=== PATIENT | female | born 1980 | race Caucasian/White ===

== ENCOUNTER 2022-04-29 13:39 | Outpatient (CLI) | payer OTHER, SELFPAY | END 2022-04-29 13:40 | disposition home or self-care (01) | PROVIDERS: PCP Family Medicine; Visit Provider Family Medicine | DX: R10.9 Unspecified abdominal pain (principal); E03.9 Hypothyroidism, unspecified; R68.82 Decreased libido | CPT/HCPCS: 80053; 84270; 84402; 84403; 84443 ==

== ENCOUNTER 2023-09-01 12:56 | Outpatient (CLI) | payer OTHER, SELFPAY | END 2023-09-01 12:57 | disposition home or self-care (01) | PROVIDERS: PCP Family Medicine; Visit Provider Family Medicine | DX: M25.50 Pain in unspecified joint (principal); R10.9 Unspecified abdominal pain; R53.83 Other fatigue; R68.82 Decreased libido; R11.0 Nausea | CPT/HCPCS: 80053; 80061; 82607; 82627; 82747; 83090; 83690; 84270; 84402; 84403; 84443 ==

== ENCOUNTER 2023-09-01 22:43 | Outpatient (REF) | payer OTHER, SELFPAY ==
--- OUTSIDE RECORDS SUMMARY | 2023-09-01 22:50 | XMS_ITS | Continuity of Care Document ---
Author Name [facility] Organization [facility] Care Team Providers Care Population Health Manager Name Role Phone [facility] Unavailable Unavailable Problems Combined list of problems from Department of Defense and Veterans Affairs facilities. It does not include entries that were removed or entered in error. Problem Status Onset Date Problem Type Date of Resolution Comments Source Other specified hypothyroidism Active 9 Condition DoD Other atopic dermatitis Active 8 Condition DoD Generalized anxiety disorder Active 7 Condition DoD Insomnia, unspecified Active 7 Condition DoD Anxiety disorder, unspecified Active 6 Condition DoD Pelvic and perineal pain Active Condition DoD Major depressive disorder, recurrent, unspecified Active Condition DoD Low self-esteem Active Condition DoD Other stressful life events affecting family and household Active Condition DoD anemia Active Condition DoD vaginal wall prolapse rectocele Active Condition DoD vaginal wall prolapse cystocele, midline Active Condition DoD myalgia and myositis Active Condition 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 uterus Active Condition DoD Patient Education - Self-Examination Of Breasts Inactive Condition DoD female pelvic pain Active Condition DoD allergic rhinitis Active Condition DoD deviated nasal septum Active Condition DoD urinary frequency Active Condition DoD hordeolum externum left lower eyelid Inactive Condition DoD eczema Inactive Condition DoD finger sprain right thumb MCP Inactive Condition DoD joint pain, localized in the wrist Active Condition DoD contusion with intact skin surface hand Inactive Condition DoD Observation For Suspected Condition Inactive Condition DoD fatigue Active Condition DoD dysplastic nevus Active Condition DoD headache syndromes Active Condition DoD dry eye syndrome Active Condition DoD female dyspareunia due to a physical condition Active Condition DoD esophageal reflux Active Condition DoD sinusitis Active Condition DoD acute urinary retention Active Condition DoD visit for: issue repeat prescription for medication Inactive Condition DoD acne Inactive Condition DoD feelings of urinary urgency Inactive Condition DoD Alopecia Inactive Condition DoD joint pain, localized in the hip Active Condition DoD constipation Inactive Condition DoD nausea Inactive Condition DoD anxiety Active Condition DoD xerosis cutis Inactive Condition DoD visit for: administrative purpose Inactive Condition DoD acute lymphadenitis axillary Inactive Condition 26yo w/ masses more likely to be lymph nodes from lactating. pt does not have evidence of mastitis. pt reassured and will need US for evaluation. however, since pt is moving will need to f/u at [place] for US and surgical consult. DoD sore throat Inactive Condition DoD opioid dependence continuous Active Condition DoD lower back pain Active Condition DoD routine pelvic exam Inactive Condition D oD pain during urination (dysuria) Inactive Condition DoD chronic pain Active Condition increas e oxycontin to 30mg po bid DoD insomnia Active Condition refill med s until she can see her pcm. DoD urinary tract infection Inactive Condition DoD upper respiratory infection Inactive Condition Recommend frequent NaCl gargles as well as increased fluids and rest while recovering from this illness. DoD chronic pain syndrome Active Condition DoD Brace Inactive Condition DoD depression Active Condition DoD idiopathic peripheral autonomic neuropathy Active Condition DoD migraine headache Active Condition DoD postlaminectomy syndrome lumbar Active Condition DoD osteoarthritis Active Condition DoD backache Active Condition pt will ge t physical training consult. DoD Other Physical Therapy Inactive Condition DoD Patient Counseling: Inactive Condition D oD nicotine dependence Active Condition Do D uterine prolapse Active Condition pt w/ pelvic organ prolapse, since pt not done w/ child bearing, would recommend kegel and if done w/ child bearing the uterosacral colpoplexy or tvh. pt getting back surgery done, once completed since she is having it done outside of [facility], recommend pt DoD cystocele Active Condition Stage 2. Urethra does not appear to be hypermobile. Bladder descends with straining to +1. Pt's complaints are much worse than her exam appears to show. I am afraid that she has unrealistic expectations of what t his surgery will do for her. Will get urodynamics and review her old records and come up with a plan for treatment. DoD rectocele Active Condition Not significant. Unlikely to be cause of symptoms. Needs to manage constipation to prevent worsening of problem. DoD feared medical condition not demonstrated Inactive Condition pt c/o stye (x2) - left superior lidPt educated on lid hygeine - lid scrubs and compresses for maintence.Pt interested in Doxycycline dosage (100mg bid) if problem persists. DoD patellofemoral syndrome Active Condition DoD tendonitis patellar Active Condition left - handout given, physical therapy consult. Patient to use Naproysn 500mg BID that she has at home. DoD keratosis pilaris Inactive Condition DoD pelvic pain Active Condition DoD hordeolum externum Inactive Condition Do D visit for: exam Inactive Condition [facility] sciatica Inactive Condition [facility] Supervision Of Normal Inactive Condition [facility] Medications Combined list of outpatient medications from Department of Defense and Veterans Affairs facilities.Medications provided include 1) outpatient medications from the last 15 months, and 2) patient-reported medications. Medication Details Route Status Patient Instructions Prescription Expires Prescription Number Last Dispense Date Ordering Provider Order Date Order Qty Source CLOBETASOL PROPIONATE (clobetasol propionate) , 0.05 %, CREAM (G), TOPICAL, ENCUBE ETHICALS, 60 g TUBE Active [id number] 2023 60 Pharmac y Data Transac tion Service Facilit y CLOBETASOL PROPIONATE (clobetasol propionate) , 0.05 %, OINT. (G), TOPICAL, ENCUBE ETHICALS, 60 g TUBE Active [id number] 4 2023 60 Pharmac y Data Transac tion Service Facilit y PIMECROLIMU S (pimecrolim us), 1 %, CREAM (G), TOPICAL, ACTAVIS/TEV A, 100 g TUBE Cancele d [id number] : 2023 0 Pharmac y Data Transac tion Service Facilit y TACROLIMUS (tacrolimus ), 0.1 %, OINT. (G), TOPICAL, GLENMARK PHARMA, 100 g TUBE Cancele d [id number] : 2023 0 Pharmac y Data Transac tion Service Facilit y TACROLIMUS (tacrolimus ), 0.1 %, OINT. (G), TOPICAL, GLENMARK PHARMA, 100 g TUBE Active [id number] 4 2023 100 Pharmac y Data Transac tion Service Facilit y TACROLIMUS (tacrolimus ), 0.1 %, OINT. (G), TOPICAL, GLENMARK PHARMA, 100 g TUBE Active [id number] 4 2023 100 Pharmac y Data Transac tion Service Facilit y TRETINOIN (tretinoin) , 0.05 %, CREAM (G), TOPICAL, PERRIGO/PAD AGIS, 45 g TUBE Cancele d [id number] : 2023 0 Pharmac y Data Transac tion Service Facilit y TRETINOIN (tretinoin) , 0.1 %, CREAM (G), TOPICAL, TARO [employer]ARM [employer], 45 g TUBE Active [id number] 4 2023 45 Pharmac y Data Transac tion Service Facilit y UREA (urea), 40 %, CREAM (G), TOPICAL, BIOCOMP PHARMA,, 85 g BOTTLE Cancele d [id number] : 2023 0 Pharmac y Data Transac tion Service Facilit y UREA (urea), 40 %, CREAM (G), TOPICAL, BIOCOMP PHARMA,, 85 g BOTTLE Cancele d [id number] : 2023 0 Pharmac y Data Transac tion Service Facilit y UREA (urea), 40 %, CREAM (G), TOPICAL, BIOCOMP PHARMA,, 85 g BOTTLE Cancele d [id number] : 2023 0 Pharmac y Data Transac tion Service Facilit y UREA (urea), 40 %, CREAM (G), TOPICAL, BIOCOMP PHARMA,, 85 g BOTTLE Active [id number] 4 2023 85 Pharmac y Data Transac tion Service Facilit y Allergies, Adverse Reactions, Alerts Combined list of allergies from Department of Defense and Veterans Affairs facilities. It does not include entries that were removed or entered in error. Substance Category Reaction Severity Reaction type Status Date Reported Comments Source SULFA-DRUGS Drug allergy (disorder) Unknown active 12/07/2012 [facility] [place], [place] ULTRAM (TRAMADOL HCL) Drug allergy (disorder) Nausea active 01/17/2014 Elmer MARKS [facility] [place], [place] Immunizations Combined list of available immunizations from the Department of Defense and Veterans Affairs facilities. Immunization Series Date Given Administered By Site Reaction Lot Number CVX Code Drug Wool Grader Status Comments Source tuberculin skin test; purified protein derivative solution, intradermal 1 2017 ROBSON GREEN 96 Transcribed (TRS) complet ed tuberculi n skin test; purified protein derivativ e solution, intraderm al DoD tuberculin skin test; purified protein derivative solution, intradermal 0 2016 EDWIN URIARTE Elvin [id number] 96 Sanofi Pasteur (PMC) complet ed tuberculi n skin test; purified protein derivativ e solution, intraderm al DoD measles virus vaccine 1 2016 EXEMPT 05 Transcribed (TRS) Not Given measles virus vaccine [facility] varicella virus vaccine 1 2016 EXEMPT 21 Transcribed (TRS) Not Given varicella virus vaccine DoD poliovirus vaccine, unspecified formulation 1 2016 EXEMPT 89 Transcribed (TRS) Not Given polioviru s vaccine, unspecifi ed formulati on DoD tuberculin skin test; purified protein derivative solution, intradermal 0 2016 SHANNANYASSINESTEPHENCAYETANO [id number] 96 Sanofi Pasteur (PMC) complet ed tuberculi n skin test; purified protein derivativ e solution, intraderm al DoD Encounters Combined list of: 1) Encounters from Department of Veterans Affairs facilities going back up to thelast 18 months. 2) Encounters from the Department of Defense facilities going back up to 280 months. Location Location Details Encounter Type Encounter Number Reason For Visit Attending Provider ADM Date DC Date Status Disposition Source Gen Avtar Dowell [facility] TIM [place] DIRECT TO [facility] FROM OTHER THAN ER OR [facility] [id number] 09/23 DISCHARGED HOME Gen Avtar Dowell [facility] TIM [place] [facility] Avtar Dowell [facility] David Dowell [place](Obstet rics/Gyne cology) OUTPATIENT [id number] f/u MAYO URRUTIA 12/07 Released w/o Limitations General Avtar Dowell [facility] [place](Obst etrics/ Gynecol ogy) [facility] Avtar Dowell [facility] [place](Psychi atry) OUTPATIENT [id number] needs paperwo SLICK Vang 01/26 Released w/o Limitations General Avtar Dowell [facility] [place] General Avtar Dowell [facility] [place], [place](Obstet rics) TELE CONSULT [id number] Appoint ment MAYO URRUTIA 03/07 Avtar Dowell [facility] [place] General Avtar Dowell [facility] [place] TELE CONSULT [id number] Leaving area for 7wks and will come back and will be moving. .. MAYO URRUTIA 03/08 General [place]tar Wood [place] General Avtar Wood [place] Iraheta(Obstet rics) TELE CONSULT [id number] Is leaving for [place] today @ 1800 and needs the referra l before she leaves. MAYO URRUTIA 03/16 [facility]tar [place] General Avtar Wood [facility] David [place] TELE CONSULT [id number] c [phone] 3///Has acosta vale about her Rx. COBY SOLORZANO 06/13 General Avtar Wood [place] General Avtar Wood [place] TELE CONSULT [id number] c [phone] 3/needs refill of MAYO Perez 07/18 General Marieard Wood [place] General Avtar Wood [facility] TIM López(Obstet rics) TELE CONSULT [id number] inducti on MAYO URRUTIA 08/06 General [place] Nirav [place]) Gen Avtar Nirav [facility] [place] DIRECT TO [facility] FROM OTHER THAN ER OR [facility] [id number] MAYO URRUTIA 08/10 DISCHARGED HOME Gen Avtar Wood [facility] TIM [place] General Avtar Wood [facility] TIM López(Obstet rics) TELE CONSULT [id number] PROBLEM W/ARM MAYO URRUTIA 08/14 General Avtar Wood [facility] [place] General Avtar Wood [facility] [place]Ob[place]/Gyne cology) TELE CONSULT [id number] NEEDS FOR YOU TO CALL [phone] MARISEL HONG 08/29 General Avtar Wood [place]Obst [place]/ Gynecol ogy) General Avtar Wood [facility] [place]Ob[place] TELE CONSULT [id number] MAYO URRUTIA 09/13 [facility] [place] [facility] [place] Medicine) OUTPATIENT [id number] KNEE PAIN FROM FORTUNATO JUAREZ. 10/05 Released w/o Limitations [facility] [place] [facility] [place]Gy[place] TELE CONSULT [id number] MARISEL PATINO 10/26 [facility] [place] Gy[place] [facility] [place] Medicine) OUTPATIENT [id number] TEST RESULTS GERMANIA AVILES 10/29 Released w/o Limitations [facility] [place] [facility] [place]) [place]PATIENT [id number] skin: a 'rash'u nder arms [as Sx] ORLANDO AVILA 11/16 Released w/o Limitations [facility] [place] [facility] [place]Gyne [place]ogy) OUTPATIENT [id number] f/u hormone PRO HOLGUIN I 12/18 Released w/o Limitations [facility] [place] Gynecol [place]gy[place] [facility] [place] Over [place] Medicine) OUTPATIENT [id number] f/u mri BERRY SAÚL L 12/31 Released w/o Limitations [facility] [place] [facility] [place] TELE CONSULT [id number] REFILLS -WELLBR UTIN XL 15O MG DAILY AND AMBEIN 10 MG DAILY PRO HOLGUIN I 01/01 [facility] [place] [facility] [place] [id number] routine eye exam MERA GERARDO 01/24 Released w/o Limitations [facility] Avtar Dowell [facility] [place]Opto metry[place] [facility] Avtar Dowell [facility] [place]Obstet [place]ics/Gyne cology) OUTPATIENT [id number] Annual WWE and questio ns PRO HOLGUIN Nahum 01/25 Released w/o Limitations [facility] Avtar Dowell [facility] [place](Obst [place]/ Gynecol ogy) [facility] Avtar Dowell [facility] [place]Obstet [place]ics/Gyne cology) TELE CONSULT [id number] Needs to talk to you PRO HOLGUIN Nahum 01/28 [facility] Avtar Dowell [facility] [place](Obst [place]rics/ Gynecol ogy) [facility] Avtar Dowell [facility] [place]Care Coordin[place]) OUTPATIENT [id number] CM - Team Conf FORTUNATO FLETCHER 04/23 Released w/o Limitations [facility] Avtar Dowell [facility] [place](Care Coordin [place]ion) [facility] Avtar Dowell [facility] [place]Machine Pull[place] Over [place] Medicine) OUTPATIENT [id number] back pain (had surgery in Feb) JONATHAN BAKER 04/24 Released w/o Limitations [facility] Avtar Dowell [facility] [place]Inte [place]nal Medicin e) [facility] Avtar Dowell [facility] [place] Medicine) OUTPATIENT [id number] referra l JONATHAN BAKER 05/30 Released w/o Limitations [facility] Avtar Dowell [facility] [place]Inte [place]nal Medicin [place]) [facility] Avtar Dowell [facility] [place]) [place]PATIENT [id number] IDIOPAT HIC PERIPHE RAL AUTONOM IC NEUROPA THY MARCE AVILA 06/17 Released w/o Limitations [facility] Avtar Dowell [facility] [place]Orth opedic[place] [facility] Avtar Dowell [facility] [place]Care Coordinat [place]) TELE CONSULT [id number] CC Referra l for Neurosu rgery F/U FORTUNATO FLETCHER 06/19 [facility] Avtar Dowell [facility] [place] [facility] Avtar Dowell [facility] [place] Over [place] Medicine) OUTPATIENT [id number] medicat ion APOLINAR MILLAN PILAR 07/11 Released w/o Limitations [facility] Avtar Dowell [facility] [place]Inte rnal Medicin [place]) [facility] Avtar Dowell [facility] [place]P [place]) [place]PATIENT [id number] PHYSICA L THERPAY CONSULT [facility] 07/23 Released with Work/Duty Limitations [facility] Avtar Dowell [facility] [place]P [place] [facility] Avtar Dowell [facility] [place]Machine Pull[place] Over al Medicine) OUTPATIENT [id number] hurt arm in SEP 2004 GER[place] AVILES 07/29 Released w/o Limitations [facility] Avtar Dowell [facility] [place]Inte rnal Medicin e) [facility] Avtar Dowell [facility] [place]) OUTPATIENT [id number] PABLO JUAN F A 07/31 Released w/o Limitations [facility] Avtar Dowell [facility] [place]P [place] [facility] Avtar Dowell [facility] [place]Obstet [place]ics/Gyne cology) TELE CONSULT [id number] NEEDS TO SPEAK WITH YOU PRO HOLGUIN I 08/08 [facility] Avtar Dowell [facility] [place](Obst [place]rics/ Gynecol ogy) [facility] Avtar Dowell [facility] [place]Machine Puller Over al Medicine) OUTPATIENT [id number] med renewal APOLINAR MILLAN PILAR 08/09 Released w/o Limitations [facility] Avtar Dowell [facility] [place](Inte rnal Medicin e) [facility] Avtar Dowell [facility] [place]Machine Puller Over al Medicine) OUTPATIENT [id number] medicat ion renewal APOLINAR MILLAN PILMARCIA 09/18 Released w/o Limitations [facility] Avtar Dowell [facility] [place](Inte rnal Medicin e) [facility] Avtar Dowell [facility] [place]Cast[place] OUTPATIENT [id number] Orthope dic Device TERRELL GUIDRY 09/18 Released w/o Limitations [facility] Avtar Dowell [facility] [place]Cast [place] [facility] Avtar Dowell [facility] [place]Obst[place]/Gyne cology[place] TELE CONSULT [id number] NEEDS TO SPEAK TO YOU ESTEFANY!! PRO HOLGUIN Nahum 11/07 General Avtar Dowell [facility] [place]Obst [place]/ Gynecol ogy) [facility] Avtar Dowell [facility] [place]Obst[place]ics/Gyne cology) TELE CONSULT [id number] NEEDS TO SPEAK WITH YOU PRO HOLGUIN Nahum 11/08 General Avtar Dowell [facility] [place]Obst [place]/ Gynecol ogy) [facility] Avtar Dowell [facility] [place]Machine Puller Over al Medicine) OUTPATIENT [id number] Med APOLINAR Scott 11/13 Released w/o Limitations General Avtar Dowell [facility] [place]Inte [place]nal Medicin [place]) [facility] Avtar Dowell [facility] [place]Blue IM) [place]PAT[place] [id number] POSS STREP THROAT JONATHAN BAKER RKanwal 11/18 Released w/o Limitations [facility] Avtar Dowell [facility] [place]Blue IM[place] [facility] Avtar Dowell [facility] [place]Blue IM) OUTPATIENT [id number] PT HAS POSS BLADDER INFECTI ON OLINDA PARIKH K 12/26 Released w/o Limitations [facility] Avtar Dowell [facility] [place]Blue IM[place] [facility] Avtar Dowell [facility] [place]Obst[place]ics/Gyne cology) OUTPATIENT [id number] f/up PRO HOLGUIN Nahum 01/24 Released w/o Limitations [facility] Avtar Dowell [facility] [place]Obst [place]/ Gynecol ogy) [facility] Avtar Dowell [facility] [place]Obst[place]/Gyne cology) TELE CONSULT [id number] SURGERY PRO HOLGUIN Nahum 02/20 [facility] Avtar Dowell [facility] [place]Obst [place]/ Gynecol ogy) [facility] Avtar Dowell [facility] [place]Family Practice [place] 1) OUTPATIENT [id number] MADYSON JEWELL 02/24 Released w/o Limitations [facility] Avtar Dowell [facility] [place] Practic [place] 1) [facility] Avtar Dowell [facility] [place]) [place] [id number] NEW OB DISCUSS BEFORE DOING OB REG PRO HOLGUIN I 02/28 Released w/o Limitations [facility] Wood [place] [facility] [place]) [place]PAT[place] [id number] OB REG MARISEL HONGKanwal 03/18 Released w/o Limitations [facility] [place]Obst [place] [facility] [place]) OUTPATIENT [id number] PRO HOLGUNI I 03/19 Released w/o Limitations [facility] [place]Obst [place] [facility] [place]) [place] [id number] visit for: jose g young high-ri HECTOR Ahmadi 04/01 Released w/o Limitations [facility]tar [place]irav [place] [facility]av [place] TELE CONSULT [id number] MADYSON GALAVIZ 04/22 [facility] [place]Fami [place] Practic [place] Team 1) [facility] [place]Obst[place] OUTPATIENT [id number] ob f/u PRO HOLGUIN I 04/23 Released w/o Limitations [facility] [place]irav [place]Ob[place] [facility]tar N[place]av [place]Family Practice [place] 1[place] TELE CONSULT [id number] JENNY WOODWARD 04/29 [facility] [place]Fami [place] Practic [place] Team 1) [facility] [place]Family [place] TELE CONSULT [id number] MADYSON GALAVIZ 05/20 [facility] [place]Fami [place] Practic [place] Team 1) [facility] [place]) OUTPATIENT [id number] f/u ob 19 wks/f/u appt w/outsi de provide r PRO HOLGUIN I 05/28 Released w/o Limitations [facility] [place] [facility] [place] TELE CONSULT [id number] Rx renewal JENNY WOODWARD. 06/02 [facility] [place]Fami [place] Practic [place] Team 1) [facility] [place] TELE CONSULT [id number] NEEDS LETTER PRO HOLGUIN I 06/11 [facility] [place] [facility] [place] OUTPATIENT [id number] 23 weeks f/u PRO HOLGUIN I 06/18 Released w/o Limitations [facility] [place] [facility] [place]) OUTPATIENT [id number] WALK IN ([facility]) MANDA SEGOVIA C 06/19 Released w/o Limitations [facility] [place]Fami [place] Practic [place] Team 1) [facility] [place]) OUTPATIENT [id number] 27 weeks PRO HOLGUIN I 07/17 Released w/o Limitations [facility] [place] [facility] [place]) OUTPATIENT [id number] NST and ALECIA ALONSO OWENS 07/23 Released w/o Limitations [facility] [place] [facility] [place]) OUTPAT[place] [id number] Walk In: ALECIA & NST L & D MARISEL HONG 07/29 Released w/o Limitations [facility] [place] [facility] [place]) OUTPATIENT [id number] Walkk In: ALECIA & NST L & D MARISEL HONG 08/05 Released w/o Limitations [facility] [place] [facility] [place]) OUTPATIENT [id number] f/u ob 32 wks CHELSIE PRO I 08/07 Released w/o Limitations [facility] [place] [facility] [place]) OUTPATIENT [id number] WALK IN NST &ALECIA L&D PRO HOLGUIN I 08/18 Released w/o Limitations [facility] [place] [facility] [place]Gy[place] OUTPATIENT [id number] nst PRO HOLGUIN I 08/22 Released w/o Limitations [facility] [place] Gynecol [place]gy[place] [facility] [place]) OUTPATIENT [id number] Walk In: ALECIA & NST L & D MARISEL HONG 08/26 Released w/o Limitations [facility] [place] [facility] [place]) OUTPATIENT [id number] WALK IN NST ALECIA, L&D HOME FALL 09/02 Released w/o Limitations [facility] [place] [facility] [place] OUTPATIENT [id number] Walk In: ALECIA & NST L & D MARISEL HONG 09/09 Released w/o Limitations [facility] [place] [facility] [place] OUTPATIENT [id number] 35weeks PRO HOLGUIN I 09/12 Released w/o Limitations [facility] [place] [facility] [place]) OUTPATIENT [id number] Walk In: ALECIA & NST L & D HOME FALL 09/15 Released w/o Limitations [facility] [place] [facility] [place]) OUTPATIENT [id number] Walk In: CHUCHOT Hugo & MARISEL VALLADARES 09/19 Released w/o Limitations [facility] [place] [facility] [place] OUTPATIENT [id number] Walk In: ALECIA & NST Hugo & MARISEL VALLADARES 09/23 Released w/o Limitations [facility] [place] [facility] [place] OUTPATIENT [id number] f/u ob 38 wks PRO HOLGUIN I 09/25 Released w/o Limitations [facility] [place] [facility] [place]) OUTPATIENT [id number] ob f/u 38wks MARISEL HONG 09/30 Released w/o Limitations [facility] [place] [facility] [place]) OUTPATIENT [id number] MARISEL Red 10/03 Released w/o Limitations [facility] [place]col [place]gy[facility] [place] DIRECT TO [facility] FROM OTHER THAN ER OR U [id number] PRO HOLGUIN I 10/06 CANCELLED ADMISSION [facility] [place] [facility] [place]) TELE CONSULT [id number] Left axillar y cysts/n odules x 2 enlargi ng PRO HOLGUIN I 10/14 [facility] [place] [facility] [place] OUTPATIENT [id number] breast lumps and armpit lumps x 4 months PRO HOLGUIN I 10/15 Released w/o Limitations [facility] [place](Obst etrics/ Gynecol ogy) [facility] [place](Obstet rics/Gyne cology) OUTPATIENT [id number] placede nt of pessary PRO HOLGUIN I 10/29 Released w/o Limitations [facility] [place](Obst etrics/ Gynecol ogy) [facility] [place](Obstet rics/Gyne cology) OUTPATIENT [id number] pp pt pessary coming out GERMANIA PUENTES 11/03 Released w/o Limitations [facility] [place](Obst etrics/ Gynecol ogy) [facility]et [facility]ics/Gyne cology Clinic) TELE CONSULT [id number] referra MATTHEW Calles 12/23 [facility]st [facility]/ Gynecol ogy Clinic) [facility]ne cology Clinic) OUTPATIENT [id number] referra l from Dr. Bowie/aura t is 8 wks pp eval for rectoce le & cystoce le MATTHEW TALBOT 12/31 Released w/o Limitations [facility]st [facility]rics/ Gynecol ogy Clinic) [facility]ne cology Clinic) TELE CONSULT [id number] second opinion CHARISMA LYNN 12/31 [facility]/ Gynecol ogy Clinic[facility]ne cology Clinic) OUTPATIENT [id number] cystoce le,rect ocele CHARISMA LYNN 01/21 Released w/o Limitations [facility]st [facility]rics/ Gynecol ogy Clinic) [facility] TIM [place](Obstet rics/Gyne cology) TELE CONSULT [id number] wants to know if you will do her surgery (cystoc cruz and rectoce le) ? PRO HOLGUIN I 02/04 [facility]col [facility]gy) [facility], [facility]) OUTPATIENT [id number] SINUS CONGEST ION;BROOK SEA AND SORE THROAT LISBET GOYAL E 11/25 Released w/o Limitations [facility], [facility] Care Clinic) [facility](Family [facility] 1, Primary Care Clinic) OUTPATIENT [id number] NEEDING REFERRA L TO GO BACK AND SEE SURGERY DOCTOR RACHEL CHEN 12/24 Released w/o Limitations [facility], [facility] Care Clinic) [facility]([place] [address], Primary Care Clinic) TELE CONSULT [id number] return call SY BRADFORD 01/12 [facility], [facility]) [facility]([place] [address], [facility] Clinic) OUTPATIENT [id number] uti symptom s, referra ls LISBET GOYAL E 01/21 Released w/o Limitations [facility], [facility]) [facility]([place] [address], [facility] Care Clinic) OUTPATIENT [id number] nausea x 1 week DIPAK CADET 02/28 Released w/o Limitations [facility], [facility] Care Clinic) [facility] 1, Primary Care Clinic) TELE CONSULT [id number] med refill request SY BRADFORD 03/09 [facility], [facility] Clinic) [facility]([place] [address], [facility] Care Clinic) OUTPATIENT [id number] FOLLOW UP ON MEDS LISBET GOYAL E 03/16 Released w/o Limitations [facility], [facility] Clinic) [facility]([place] [address], [facility] Care Clinic) OUTPATIENT [id number] f/u meds SANTOSAGALSASIA , LISBET E 04/08 Released w/o Limitations [facility], [facility]) [facility], [facility]) TELE CONSULT [id number] pt calling about her patch SY BRADFORD A 04/11 [facility], [facility]) [facility]) TELE CONSULT [id number] med refill SY BRADFORD A 04/26 [facility], [facility]) [facility]) OUTPATIENT [id number] f/u ELIF GOYALSON E 04/26 Released w/o Limitations [facility], [facility]) [facility]) TELE CONSULT [id number] med is making her sick SY BRADFORD A 05/10 [facility], [facility]) [facility], [facility]) OUTPATIENT [id number] med refill- pain ELIF GOYALSON E 05/31 Released w/o Limitations [facility], [facility]) [facility]) TELE CONSULT [id number] NETTA Posey 06/01 [facility], [facility]) [facility]) TELE CONSULT [id number] PT CHECKIN G ON REFERAL LISBET GOYAL E 06/03 [facility], [facility] Care Clinic) [facility], [facility]) TELE CONSULT [id number] f/u NETTA Serna 06/03 [facility], Primary Care Clinic) [facility] 1, Primary Care Clinic) TELE CONSULT [id number] xray results JUAN TSAI 06/07 [facility], Primary Care Clinic) [facility] [id number] ref needed RENAEJENNY ROMO Dalila 06/15 Released w/o Limitations [facility] TELE CONSULT [id number] pt wants hormone w/u to explain hair loss dry skin recent labs given MAYUR MOJICA 06/16 [facility] TELE CONSULT [id number] f/u labs MAYUR MOJICA 06/21 [facility] OUTPATIENT [id number] pt needing seen for vitamin deficie ncy,pos sible referra l dermato AYANNA Hdz 06/27 Released w/o Limitations [facility] TELE CONSULT [id number] pt of Domag., med refill request RENAEJENNY ROMO Dalila 07/08 [facility]) [facility] OUTPATIENT [id number] med re-fill narcoti c ONESIMO QUIÑONEZ 07/12 Released w/o Limitations [facility] TELE CONSULT [id number] call labs AYANNA AGUILAR 07/20 [facility] TELE CONSULT [id number] Pain med refill - apt but went to [facility] JONATHAN ALLISON 08/09 [facility]) OUTPATIENT [id number] medicat ion refill/ eval LISBET GOYAL 09/06 Released w/o Limitations [facility]) OUTPATIENT [id number] med refill ORESTES Sands DALLAS Guy 10/05 Released w/o Limitations [facility]) [facility]) OUTPATIENT [id number] f/u meds and refill CLAONESIMO SEGURA 10/07 Released w/o Limitations [facility]) OUTPATIENT [id number] MED EVAL AND REFILL; REFERRA L ONESIMO QUIÑONEZ 11/15 Released w/o Limitations [facility]) TELE CONSULT [id number] Ref to pain clinic by Mr Tarun rincon teresa shane ns [phone] MARGE BAUTISTA 12/05 [facility]) OUTPATIENT [id number] med refills ONESIMO QUIÑONEZ 12/13 Released w/o Limitations [facility]) TELE CONSULT [id number] refill meds ONESIMO QUIÑONEZ 01/06 [facility]) OUTPATIENT [id number] medicat ion refill ONESIMO QUIÑONEZ 01/06 Released w/o Limitations [facility]) TELE CONSULT [id number] pt. calling for referra l to [facility] pt needs altter faxed to them. ONESIMO QUIÑONEZ 01/17 [facility]) [facility]) OUTPATIENT [id number] med re-fill and referra ls ONESIMO QUIÑONEZ 01/31 Released w/o Limitations [facility]) [facility]) TELE CONSULT [id number] meds MARGE BAUTISTA 02/07 [facility]) [facility]) TELE CONSULT [id number] med refill MARGE BAUTISTA 02/24 [facility]) [facility] OUTPATIENT [id number] JIMMY CAMPBELL 04/19 Released w/o Limitations [facility]) [facility]) OUTPATIENT [id number] med refills and referal s ONESIMO QUIÑONEZ 05/15 Released w/o Limitations [facility]) [facility]) TELE CONSULT [id number] Pt calling for her referra l to pain clinic and physica l therapy not in MARGE BAUTISTA 06/02 Referred for Appointment [facility]) [facility]) TELE CONSULT [id number] Req refill of Tramado l [phone] MARGE BAUTISTA 06/06 Referred for Appointment [facility]) [facility]) TELE CONSULT [id number] 1300 appt 14 june Ms Aguilar for burning and bloatin g and freq 1 hr prior to lab MICHELE MARGE MONO 06/13 Referred for Appointment [facility]) [facility]) OUTPATIENT [id number] pt has had bladder reconst now frequen cy pain and bloatin g TAMRA NANETTEALBERTO L 06/14 Released w/o Limitations [facility]) [facility]) TELE CONSULT [id number] call bladder culture INDIRAWicho MARGE MONO 06/14 Referred for Appointment [facility]) [facility]) TELE CONSULT [id number] Pt of Ms Aguilar needs recent visit sent to Pain clinic for apt Fax MARGE BAUTISTA 06/19 Referred for Appointment [facility]) [facility]) TELE CONSULT [id number] pt. calling for Clindam ycin cream for her face acne issues INDIRAWicho MARGE MONO 06/27 Referred for Appointment [facility]) [facility]) OUTPATIENT [id number] med refill AYANNA AGUILAR L 07/12 Released w/o Limitations [facility]) [facility]) OUTPATIENT [id number] med refill TAMRA INGELIN L 08/08 Released w/o Limitations [facility]) [facility]) OUTPATIENT [id number] back pain. pt broke her back in an acciden t. may have broken it again TAMRANANETTE TIPTONELIN L 09/12 Released w/o Limitations [facility]) [facility]([place] [address]) OUTPATIENT [id number] MED REFILL INDIA REYES 11/03 Released w/o Limitations [facility]([place] [address]) [facility]([place] [address]) OUTPATIENT [id number] medicat ion refill INDIA REYES 11/28 Released w/o Limitations [facility]([place] [address]) [facility]([place] [address]) TELE CONSULT [id number] rx given to patient needs to be changed INDIA REYES 11/28 [facility]([place] [address]) [facility]) OUTPATIENT [id number] pt needs med reevalu ation INDIA GUY 01/01 Released w/o Limitations [facility]) [facility]) OUTPATIENT [id number] f/up evaluat ion INDIA GUY 01/02 Released w/o Limitations [facility]) [facility]) TELE CONSULT [id number] needs rx refills for clindom ycin reactiv ated call @ [phone] FANG-D KALEBOSSCIRILOFREDDIE A 01/09 Referred for Appointment [facility]) [facility]) OUTPATIENT [id number] f/up medicat ion INDIA GUY J 01/10 Released w/o Limitations [facility]) [facility]) TELE CONSULT [id number] request clindam ycin (topica l lotion) refill FANG-D ROGELIO FREDDIE A 01/10 Released to Self Care [facility]) [facility]) OUTPATIENT [id number] pt wants somethi ng for anxiety and depress ion INDIA GUY 01/22 Released w/o Limitations [facility]) [facility]) OUTPATIENT [id number] med check INIDA GUY 02/02 Released w/o Limitations [facility]) [facility]) OUTPATIENT [id number] PT NEEDING REFILL ON PERCOCE T, TRAMADO L, GABAPEN TIN, CELEBRE X INDIA GUY 03/06 Released w/o Limitations [facility]anklin([facility]) [facility]) OUTPATIENT [id number] TIMO HERNANDEZ 03/09 Released w/o Limitations [facility]) [facility]) OUTPATIENT [id number] f/u medicat ion eval INDIA GUY 03/13 Released w/o Limitations [facility]) [facility]) OUTPATIENT [id number] refill medicat ion URIARTE JAMES L 03/30 Released w/o Limitations [facility]) [facility]) OUTPATIENT [id number] med refill JAMI SILVA R 04/17 Released w/o Limitations [facility]) [facility]) OUTPATIENT [id number] follow up medicat ion check JAMI SILVA R 05/14 Released w/o Limitations [facility]) [facility]) OUTPATIENT [id number] pain abdoman HOME DURANT 05/29 Released w/o Limitations [facility]) [facility]) OUTPATIENT [id number] ctn scan follow up. BHARGAVHOME ANTONIA 06/01 Released w/o Limitations [facility]) [facility]) OUTPATIENT [id number] med renewal HOME DURANT ANTONIA 06/12 Released w/o Limitations [facility]) [facility]) TELE CONSULT [id number] Results Rec'd BHARGAVHOME ANTONIA 06/13 [facility]) [facility]) TELE CONSULT [id number] called because she cannot get rx - panlor -- filled DELROY SHANKAR 06/14 Referred for Appointment [facility]) [facility]) TELE CONSULT [id number] GarthKanwal Mary Beth govea wrote rx for Edocet, [facility]. needs her ESTEFANI#, not [facility] ESTEFANI DELROY SHANKAR 06/19 [facility]) [facility]) OUTPATIENT [id number] medicat ion JAMI SILVA 06/21 Released w/o Limitations [facility]) [facility]) OUTPATIENT [id number] med refills SOFI WILLINGHAM 07/23 Released w/o Limitations [facility] OUTPAT[facility] [id number] sinus pain and CHARISSA Dorado 08/17 Released w/o Limitations [facility] 1) [facility]) OUTPATIENT [id number] pt needs meds refill ONESIMO CABRAL 08/22 Released w/o Limitations [facility]) [facility]) OUTPATIENT [id number] medicat ion refill JAMI SILVA 08/24 Released w/o Limitations [facility]) [facility]) TELE CONSULT [id number] Med refill- lunesta . JOSE JOHN 09/12 Referred for Appointment [facility]) [facility]) OUTPATIENT [id number] med renewal /sole provide r ONESIMO CABRAL 10/08 Released w/o Limitations [facility]) [facility]) TELE CONSULT [id number] # is correct , med refill problem BESSY Martinez 10/09 Referred for Appointment [facility]) [facility]) TELE CONSULT [id number] Mr B pt-medi cation [id number] [facility] DELROY SHANKAR 10/15 Referred for Appointment [facility]) [facility]) OUTPATIENT [id number] medONESIMO Leon 10/24 Released w/o Limitations [facility]) [facility]) OUTPATIENT [id number] referra l for surgery consult JAMES URIARTE 11/08 Released w/o Limitations [facility]) [facility]) TELE CONSULT [id number] JOSE Manuel 11/23 Referred for Appointment [facility]) [facility]) TELE CONSULT [id number] Results Rec'd BETT, ONESIMO E 11/27 [facility]) [facility]) OUTPATIENT [id number] med refill BETT, ONESIMO E 12/04 Released w/o Limitations [facility]) [facility]([address] 1) OUTPATIENT [id number] med refill BETT, ONESIMO E 01/09 Released w/o Limitations [facility]([address] 1) [facility]([address] 1) TELE CONSULT [id number] Pt need referra l for sp lumber laminec angelo, brace shot do not carry the corsett ELENA SHIRLEY 01/15 Referred for Appointment [facility]([address] 1) [facility]) OUTPATIENT [id number] FORTUNATO HARPER 01/16 Released w/o Limitations [facility]) [facility] [employer]) OUTPATIENT [id number] eye exam HOME JIANG 01/18 Released w/o Limitations [facility]) [facility]([address] 1) OUTPATIENT [id number] med refill BETT, ONESIMO E 02/12 Released w/o Limitations [facility]([address] 1) [facility]([address] 1) OUTPATIENT [id number] f/u on medicat ion, moles needing checked BETT, ONESIMO E 03/06 Released w/o Limitations [facility]([address] 1) [facility]([address] 1) OUTPATIENT [id number] med renewal BETT, ONESIMO E 04/10 Released w/o Limitations [facility]([address] 1) [facility]([address] 1) OUTPATIENT [id number] Medicat ion refill BETT, ONESIMO E 05/08 Released w/o Limitations [facility]([address] 1) [facility]([address] 1) TELE CONSULT [id number] Notes Entered by: BERTIN ISBELL 21 May 2011 0940 ------- ------- ------- ------- -- Results Rec'd BETT, ONESIMO E 05/20 [facility]([address] 1) [facility]([address] 1) OUTPATIENT [id number] med renewal BETT, ONESIMO E 06/06 Released w/o Limitations [facility]([address] 1) [facility]([address] 1) TELE CONSULT [id number] Miguel Angel g on Referra l for Endocri nologis JOSE Kaur 06/06 Referred for Appointment [facility]([address] 1) [facility]([address] 1) OUTPATIENT [id number] med refill BETT, ONESIMO E 07/09 Released w/o Limitations [facility]([address] 1) [facility]([address] 1) OUTPATIENT [id number] med renewal BETT, ONESIMO E 08/01 Released w/o Limitations [facility]([address] 1) [facility]([address] 1) OUTPATIENT [id number] medicat ion refill BETT, ONESIMO E 09/09 Released w/o Limitations [facility]([address] 1) [facility]([address] 1) OUTPATIENT [id number] rx refill BETT, ONESIMO E 10/09 Released w/o Limitations [facility]([address] 1) [facility]) OUTPATIENT [id number] FORTUNATO SHAY 10/20 Released w/o Limitations [facility]) [facility]([address] 1) OUTPATIENT [id number] medicat ion refONESIMO Reddy 11/06 Released w/o Limitations [facility]([address] 1) [facility]([address] 1) OUTPATIENT [id number] med ONESIMO Villela 12/08 Released w/o Limitations [facility]([address] 1) [facility]([address] 1) OUTPATIENT [id number] Meds refONESIMO Reddy 01/12 Released w/o Limitations [facility]([address] 1) [facility]([address] 1) OUTPATIENT [id number] Meds refONESIMO Reddy 02/05 Released w/o Limitations [facility]([address] 1) [facility]) OUTPATIENT [id number] ISELA YIN 02/18 Released w/o Limitations [facility]) [facility]) OUTPATIENT [id number] CONTUSI ON WITH INTACT SKIN SURFACE - HAND ARMANDO ESPARZA I 02/18 Released with Work/Duty Limitations [facility]) [facility] Franklin([address]) TELE CONSULT [id number] Notes Entered by: SAÚL MORALES 20 Feb 2012 1537 ------- ------- ------- ------- -- Xray results INDERJIT HOFF 02/19 Referred for Appointment RAD[facility] Franklin([address] 1) [facility]) OUTPATIENT [id number] f/u right scaphoi d fx ANTHONYARMANDO HSU I 03/02 Released with Work/Duty Limitations [facility] Franklin([address] 1) OUTPATIENT [id number] med refill BETT, ONESIMO E 03/06 Released w/o Limitations RAD[facility] Franklin([address] 1) [facility] OUTPATIENT [id number] f/u rt wrist ARMANDO ESPARZA I 03/24 Released with Work/Duty Limitations RAD[facility]) RADHA Franklin([address] 1) OUTPATIENT [id number] refill on meds/ resched BETT ONESIMO E 04/07 Released w/o Limitations RADHA Franklin([address] 1) RAD[facility] Franklin([address] 1) OUTPATIENT [id number] left eye irritai on possibl e stye BETT, ONESIMO E 04/29 Released w/o Limitations RADHA Franklin([address]) RAD[facility] Franklin([address] 1) OUTPATIENT [id number] med renewal BETT ONESIMO E 05/01 Released w/o Limitations RAD[facility] Franklin([address]) [facility] Franklin([address] 1) TELE CONSULT [id number] Notes Entered by: CHARISSA MOELLER 19 May 2012 1220 ------- ------- ------- ------- -- Medicat ion Refill for Xanax, Lunesta INDERJIT HOFF 05/19 Referred for Appointment [facility] Franklin([address] 1) RADHA Franklin([address] 1) OUTPATIENT [id number] medicat ion refill ONESIMO CABRAL 06/03 Released w/o Limitations RADHA Franklin([address] 1) RAD[facility] Franklin([address] 1) OUTPATIENT [id number] med refill ONESIMO CABRAL 07/03 Released w/o Limitations [place]mer [place] RADHA([address] 1) [place] RADHA([address] 1) TELE CONSULT [id number] Notes Entered by: RONNI PARADA 21 Jul 2012 1615 ------- ------- ------- ------- -- [facility] INDERJIT HOFF 07/21 Referred for Appointment Elmer GUZMAN [place] RADHA([address]) El[place] RADHA([address] 1) OUTPATIENT [id number] med renewal ONESIMO CABRAL 07/31 Released w/o Limitations RADHA Franklin([address]) [place] RADHA([address] 1) TELE CONSULT [id number] Notes Entered by: ZULEMA SLOAN 11 Aug 2012 1420 ------- ------- ------- ------- -- Needs pain med, shot in back, needs ROB Mcgill 08/11 Referred for Appointment Elmer GUZMAN [place] RADHA([address]) Payne THOMAS Azuley RADHA([address] 1) OUTPATIENT [id number] pain shot? ONESIMO CABRAL 08/12 Released w/o Limitations Elmer GUZMAN [place] RADHA([address]) Payneleta GUZMAN [place] RADHA([address] 1) TELE CONSULT [id number] Notes Entered by: BERTIN ISBELL 18 Aug 2012 0838 ------- ------- ------- ------- -- Results ONESIMO Braga 08/18 RADHA Franklin([address] 1) RAD[facility] Franklin([address] 1) TELE CONSULT [id number] Notes Entered by: RONNI PARADA 31 Aug 2012 1656 ------- ------- ------- ------- -- Returni Call INDERJIT HOFF 08/31 Referred for Appointment RAD[facility] Franklin([address] 1) RADHA Franklin([address] 1) OUTPATIENT [id number] med refill and referra l to neuro ONESIMO CABRAL 09/08 Released w/o Limitations RADHA Franklin([address] 1) RADHA Franklin([facility] [employer]) OUTPATIENT [id number] Notes Entered by: DONA HARPER 22 Sep 2012 1359 ------- ------- ------- ------- -- FORTUNATO Moragn 09/22 Released w/o Limitations RAD[facility] Franklin([facility] [employer]) [facility] OUTPATIENT [id number] well woman exam MARIANELA CHARLES 10/07 Released w/o Limitations RADHA Franklin([facility]) RADHA Franklin([address] 1) OUTPATIENT [id number] medicat ion refill ONESIMO CABRAL 10/08 Released w/o Limitations RADHA Franklin([address] 1) [facility] Clinic) OUTPATIENT [id number] Consult for dry SHO Johnson 10/08 Released w/o Limitations [facility](Pain [facility]) Elmer AzulRADHA dixon([address] 1) TELE CONSULT [id number] Notes Entered by: BERTIN ISBELL 23 Oct 2012 1206 ------- ------- ------- ------- -- Results Rec'd ONESIMO CABRAL 10/23 [place] RADHA([address] 1) RADHA Fraknlin([address] 1) TELE CONSULT [id number] Notes Entered by: VANGIE BOCANEGRA 04 Nov 2012 1509 ------- ------- ------- ------- -- The results of your Referra l/Consu lt have been returne d and are now availab le in ONESIMO CABRAL 11/04 [place] RADHA([address]) RADHA Franklin([address] 1) OUTPATIENT [id number] med refill ONESIMO CABRAL 11/06 Released w/o Limitations [place] RADHA([address] 1) [facility] Clinic) OUTPATIENT [id number] Follow up SHO VANEGAS 11/11 Released w/o Limitations [place] [facility] El[place] RADHA([address] 1) OUTPATIENT [id number] medicat ion refill ONESIMO CABRAL 12/07 Released w/o Limitations [place] RADHA([address]) [place]([address] 1) TELE CONSULT [id number] Notes Entered by: VANGIE BOCANEGRA 07 Dec 2012 1555 ------- ------- ------- ------- -- The results of your Referra l/Consu lt have been returne d and are now availab le in ONESIMO CABRAL 12/07 RAD[facility] Franklin([address] 1) RADHA Franklin([address] 1) OUTPATIENT [id number] med refill BETT, ONESIMO E 01/06 Released w/o Limitations RAD[facility] Franklin([address] 1) RADHA Franklin([address] 1) OUTPATIENT [id number] med refills BETT, ONESIMO E 02/02 Released w/o Limitations RAD[facility] Franklin([address] 1) [facility](Pain Clinic) TELE CONSULT [id number] Notes Entered by: RADHA VALLEJO 23 Feb 2013 0927 ------- ------- ------- ------- -- Medicat ion questio ns SHO VANEGAS 02/23 [facility]) RAD[facility] Franklin([address] 1) OUTPATIENT [id number] medicat ion refill MARIANNA ONESIMO E 02/26 Released w/o Limitations RAD[facility] Franklin([address]) RADHA Franklin([address] 2) TELE CONSULT [id number] Notes Entered by: MICHELLE DALE ON 01 Mar 2013 1549 ------- ------- ------- ------- -- [address] 03/01 [place]([address]) RADAH Franklin([address] 1) TELE CONSULT [id number] Notes Entered by: ZULEMA SLOAN 17 Mar 2013 1623 ------- ------- ------- ------- -- she needs a referra l for urologi st/gyno cologis t. MARIANNA ONESIMO E 03/17 [facility]([address] 1) RAD[facility](Obstet rics/Gyne cology Clinic) TELE CONSULT [id number] Notes Entered by: CLAUDIA KHAN 02 Apr 2013 1113 ------- ------- ------- ------- -- Resched dorita appoint ment for initial consult from PCM. DELROY KHAN 04/02 Referred for Appointment [facility](Obst etrics/ Gynecol ogy Clinic) [facility](Obstet rics/[facility]ne cology Clinic) TELE CONSULT [id number] Notes Entered by: CLAUDIA KHAN 06 Apr 2013 0822 ------- ------- ------- ------- -- Apointm ent for consult with CALIBRATION SPECIALIST. DELROY KHAN 04/06 Referred for Appointment [facility](Obst etrics/ Gynecol ogy Clinic) RADHA Franklin([address] 1) OUTPATIENT [id number] medicat ion refill ONESIMO CABRAL 04/08 Released w/o Limitations RAD[facility] Franklin([address] 1) RAD[facility] Franklin([address] 1) TELE CONSULT [id number] Notes Entered by: ZULEMA SLOAN 08 Apr 2013 1544 ------- ------- ------- ------- -- lab results please. SALVADOR DOWELL 04/08 Referred for Appointment RAD[facility]([address] 1) [facility](Obstet rics/[facility]ne cology Clinic) TELE CONSULT [id number] Notes Entered by: KEYA HOWARD 13 Apr 2013 1207 ------- ------- ------- ------- -- Please call ref to pt's appt she was schedul ed for on Mar. Pt has DELROY Merrill T 04/13 Referred for Appointment [facility](Obst etrics/ Gynecol ogy Clinic) RADHA Franklin([address] 1) TELE CONSULT [id number] Notes Entered by: CHARISSA MOELLER 28 Apr 2013 1155 ------- ------- ------- ------- -- Patient would like an call from SALVADOR Barrios 04/28 Referred for Appointment RAD[facility] Franklin([address] 1) RADHA Franklin([address] 1) OUTPATIENT [id number] medicat ion refill ONESIMO CABRAL 05/05 Released w/o Limitations RAD[facility] Franklin([address] 1) [facility]stet rics[facility]) OUTPATIENT [id number] FABRICATING MACHINE OPERATOR-FUP from ISELA Galloway 05/14 Released w/o Limitations [facility](Obst etrics/ Gynecol ogy Clinic) RADHA Franklin([address] 1) OUTPATIENT [id number] med refill ONESIMO CABRAL 06/07 Released w/o Limitations RADHA Franklin([address] 1) RADHA Franklin([address] 1) OUTPATIENT [id number] medicat ion refill ONESIMO CABRAL 07/07 Released w/o Limitations RADHA Franklin([address] 1) RADHA Franklin([address] 1) OUTPATIENT [id number] SWOLLEN NECK GLANDS, RT EAR CLOGGED , NASAL CONGEST ION ONESIMO CABRAL 08/23 Released w/o Limitations RADHA Franklin([address] 1) RADHA Franklin([address] 1) TELE CONSULT [id number] Notes Entered by: Marychuy ARIZMENDI 20 Sep 2013 0920 ------- ------- ------- ------- -- Pt is request ing a medicat ion refill. Renew an authori zation for ENT. OZIEL GARCIA 09/20 Referred for Appointment Payneleta Trent RADHA([place] [address]) RADHA Franklin([place] [address]) TELE CONSULT [id number] Notes Entered by: BERTIN ISBELL 14 Oct 2013 1515 ------- ------- ------- ------- -- Results RecONESIMO Horner 10/14 RADHA Franklin([place] [address]) [facility]([place] [address]) TELE CONSULT [id number] Notes Entered by: BERTIN ISBELL 21 Oct 2013 0825 ------- ------- ------- ------- -- Results Rec'ONESIMO Hester 10/21 [place] RADHA([place] [address]) [place] RAD[facility]([place] [address]) TELE CONSULT [id number] Notes Entered by: BERTIN ISBELL 01 Nov 2013 1413 ------- ------- ------- ------- -- Results RecONESIMO Horner 11/01 RADHA Franklin([place] [address]) [facility] Franklin([place] [address]) TELE CONSULT [id number] Notes Entered by: TATA LUGO 20 Dec 2013 0812 ------- ------- ------- ------- -- Results RecONESIMO Horner 12/20 RADHA Franklin([place] [address]) [facility]([place] [address]) TELE CONSULT [id number] Notes Entered by: Dalila GABRIEL 21 Dec 2013 1121 ------- ------- ------- ------- -- Med refill OZIEL GARCIA 12/21 RADHA Franklin([address] 1) RADHA Franklin([address] 1) OUTPATIENT [id number] med refill and lab work ONESIMO CABRAL 01/17 Released w/o Limitations RADHA Franklin([address] 1) RADHA Franklin([address] 1) TELE CONSULT [id number] Notes Entered by: CHARISSA MOELLER 24 Mar 2014 1211 ------- ------- ------- ------- -- Lab results OZIEL GARCIA 03/24 RAD[facility] Franklin([address] 1) RADHA Franklin([address] 1) OUTPATIENT [id number] lower back pain down legs NITHIN CUI 03/28 Released w/o Limitations RADHA Franklin([address] 1) RADHA Franklin([address] 1) OUTPATIENT [id number] BLOOD WORK, REFERRA L TO NUEROLO GY/MED RENEWAL ONESIMO CABRAL 07/25 Released w/o Limitations RADHA Franklin([address] 1) RADHA Franklin([facility] [employer]) OUTPATIENT [id number] POSTLAM INECTOM Y SYNDROM E (LUMBAR ) FORTUNATO HARPER 09/22 Released w/o Limitations RAD[facility] Franklin([facility] [employer]) RADHA Franklin([address] 3) TELE CONSULT [id number] Notes Entered by: Elvin CRUZ 27 Sep 2014 1511 ------- ------- ------- ------- -- Lab results and med refills JAMAICA THOMAS 09/27 RADHA Franklin([address] 3) RADHA Franklin([address] 3) TELE CONSULT [id number] Notes Entered by: FILIBERTO HILL 27 Oct 2014 1431 ------- ------- ------- ------- -- pt request ing refill (O LEFT) DAY, [place] 10/27 PayneRADHA Menard([address] 3) RADHA Franklin([address] 6) OUTPATIENT [id number] med refill, pain meds ONESIMO CABRAL 12/01 Released w/o Limitations PayneRADHA Menard([address] 6) [place]([address] 3) TELE CONSULT [id number] Notes Entered by: FELIX BECK 07 Dec 2014 1009 ------- ------- ------- ------- -- NDR CHRISTIANA Walter 12/07 Payne [facility] [place]([address]) Elmer [facility] [place]([address] Tm 5) TELE CONSULT [id number] Notes Entered by: CAMRON KNOWLES 31 Jan 2015 1311 ------- ------- ------- ------- -- Med refill. GAVI KIM N 01/31 Payne[place]([facility] Tm 5) [facility] [place]([address] Tm 5) TELE CONSULT [id number] Notes Entered by: CAMRON KNOWLES 03 Feb 2015 0804 ------- ------- ------- ------- -- Medicat ion Refill GAVI KIM N 02/03 Payne [facility] [place]([address] Tm 5) Payne THOMAS Azuley RADHA([address] Tm 5) OUTPATIENT [id number] SORE THROAT, CONGEST ION, BODY ACHES ONESIMO CABRAL 02/03 Released w/o Limitations Payne THOMAS Azuley RADHA([facility] Tm 5) Payneleta Trent RADHA([address] Tm 5) OUTPATIENT [id number] medicat ion refill and labs for neurolo gist ONESIMO CABRAL 03/03 Released w/o Limitations Payne THOMAS [place] RADHA([address] Tm 5) [place] RADHA([address] Tm 5) TELE CONSULT [id number] Notes Entered by: PEACE HAJI 29 Mar 2015 1519 ------- ------- ------- ------- -- Medicat ion Refill JONATHAN ALLISON 03/29 RADHA Franklin([address] Tm 5) [place]([address] Tm 5) TELE CONSULT [id number] Notes Entered by: DEVENDRA ALLISON 31 Mar 2015 0850 ------- ------- ------- ------- -- SMS pt states normall y get refill with her xanax script JONATHAN ALLISON 03/31 RADHA Franklin([address] Tm 5) [place]([address] Tm 5) OUTPATIENT [id number] med refill, f/u for blood work ONESIMO CABRAL 05/24 Released w/o Limitations Payne [facility] David [place] RADHA([address] Tm 5) RADHA Franklin([address] Tm 5) TELE CONSULT [id number] Notes Entered by: TRACEY MCKEON 29 May 2015 1527 ------- ------- ------- ------- -- RESULTS REC'D - Urology ONESIMO CABRAL 05/28 RADHA Franklin([facility] [place] T[place] 5) RADHA Franklin([facility] [place] T[place] 5[place] TELE CONSULT [id number] Notes Entered by: PEACE HAJI 20 Jun 2015 1422 ------- ------- ------- ------- -- Medicat ion Refill DAYANA DORSEY 06/19 Referred for Appointment Payneleta Azuley RADHA([facility] [place] Tm 5) Elmer Azuley RADHA([facility] [place] Tm 5) TELE CONSULT [id number] Notes Entered by: TRACEY MCKEON 29 Jun 2015 1607 ------- ------- ------- ------- -- Results Rec'd - Radiolo ONESIMO Esquivel 06/28 Payneleta Azuley RADHA([facility] [place] T[place] 5) Elmer Hernandez [place] RADHA([facility] Tm 5) TELE CONSULT [id number] Notes Entered by: PEACE HAJI 11 Jul 2015 1436 ------- ------- ------- ------- -- Left Message GAVI KIM 07/10 Payneleta Hernandez [place] [facility] [place] T[place] 5) [place] [facility] [place] T[place] 5) OUTPATIENT [id number] referra l informa tion/me d refill/ shoulde r pain x2wONESIMO Antonio 07/11 Released w/o Limitations Payneleta Azuley RADHA([facility] Tm 5) [place] TH[place] [place] [place] T[place] 5) OUTPATIENT [id number] Service /Care Coordin CAMELIA Rice 07/11 Released w/o Limitations Payne [facility] RADHA Sawyer([facility] Tm 5) Payneleta [place] [place] T[place] 5) TELE CONSULT [id number] Notes Entered by: CAMELIA VALLEJO 13 Jul 2015 1538 ------- ------- ------- ------- -- Referra CAMELIA Bird 07/12 [facility] T[facility] 5) [facility] Tm 5) TELE CONSULT [id number] Notes Entered by: PEACE HAJI 18 Jul 2015 1446 ------- ------- ------- ------- -- MRI Request GAVI KIM N 07/17 [facility] Tm 5) [facility] Tm 5) TELE CONSULT [id number] Notes Entered by: PEACE HAJI 18 Jul 2015 1448 ------- ------- ------- ------- -- Medicat ion Issues GAVI KIM N 07/17 [facility] Tm 5) [facility] Tm 5) TELE CONSULT [id number] Notes Entered by: BERTIN ISBELL 24 Jul 2015 1516 ------- ------- ------- ------- -- Results Rec'd - Urology July 02 ONESIMO CABRAL 07/23 [facility] Tm 5) [facility] Tm 5) TELE CONSULT [id number] Notes Entered by: BERTIN ISBELL 27 Jul 2015 0829 ------- ------- ------- ------- -- Results Rec'd - Urology & July 02 ONESIMO CABRAL 07/26 [facility] T[facility]) [facility] Tm 5) TELE CONSULT [id number] Notes Entered by: PEACE HAJI 02 Aug 2015 1300 ------- ------- ------- ------- -- PT left message JOSE MARX [facility] 08/01 RADHA Franklin([facility] Tm 5) RAD[facility] 1) OUTPATIENT [id number] pt request JUAN PERERA 08/03 Released w/o Limitations RAD[facility] 1) RADHA Franklin([facility] Tm 5) TELE CONSULT [id number] Notes Entered by: RUBY CHANG 04 Aug 2015 1550 ------- ------- ------- ------- -- Alignme nt with [facility] RUBY CHANG 08/03 RADHA Franklin([facility] Tm 5) RADHA Franklin([facility] Tm 5) TELE CONSULT [id number] Notes Entered by: SUSIE LUO 07 Aug 2015 1207 ------- ------- ------- ------- -- result receive d - MRI ONESIMO CABRAL 08/06 RADHA [facility] Tm 5) RADHA [facility] Tm 5) TELE CONSULT [id number] Notes Entered by: SUSIE LUO 15 Aug 2015 1529 ------- ------- ------- ------- -- result receive d - urology ONESIMO CABRAL 08/14 RADHA Franklin([facility] Tm 5) RADHA Franklin([facility] Tm 5) TELE CONSULT [id number] Notes Entered by: CAMRON KNOWLES 04 Sep 2015 1020 ------- ------- ------- ------- -- med kevin MICHELLECLAIR HUSAINAbimael Farr 09/03 RADHA Franklin([facility] [place] [facility]) RAD[facility] [place] [facility]) TELE CONSULT [id number] Notes Entered by: TRACEY MCKEON 06 Sep 2015 1335 ------- ------- ------- ------- -- Results Rec'd - Urology ONESIMO CABRAL 09/05 RADHA Franklin([facility] [place] T[place] [facility]) RADHA [facility] [place] [facility]) TELE CONSULT [id number] Notes Entered by: TRACEY MCKEON 09 Oct 2015 1101 ------- ------- ------- ------- -- Results Rec'd - Laborat orONESIMO Oglesby 10/08 RADHA [facility] [place] [facility]) [facility] [place] [facility] [facility] TELE CONSULT [id number] Notes Entered by: ROB REYES 10 Oct 2015 1114 ------- ------- ------- ------- -- Results Receive d-Urolo [id number] [id number] ONESIMO CABRAL 10/09 RADHA Franklin([facility] [place] [facility]) RADHA [facility] [place] [facility]) TELE CONSULT [id number] Notes Entered by: CAMRON KNOWLES 30 Oct 2015 1210 ------- ------- ------- ------- -- JOSE Viramontes 10/29 RADHA [facility] [place] [facility]) [facility] OUTPATIENT [id number] Pt wants STD check MARIANELA CHARLES 10/30 Released w/o Limitations [facility]) RADHA Franklin([facility] [place] [facility] [facility]) TELE CONSULT [id number] Notes Entered by: CAMRON KNOWLES 01 Nov 2015 1356 ------- ------- ------- ------- -- med & lab result JOSE MARX 10/31 RADHA [facility] [place] [facility]) RADHA [facility] [place] [facility]) OUTPATIENT [id number] medicat ion refill ONESIMO CABRAL 11/02 Released w/o Limitations RADHA [place]([facility] [place] [facility]) RAD[facility]) TELE CONSULT [id number] Notes Entered by: MARIANELA CHARLES 08 Nov 2015 1506 ------- ------- ------- ------- -- lab results MARIANELA CHARLES 11/07 RAD[facility]) RADHA Franklin([facility] [place] [facility]) TELE CONSULT [id number] Notes Entered by: CAMRON KNOWLES 09 Nov 2015 1257 ------- ------- ------- ------- -- shot JOSE MARX 11/08 RAD[facility] [place] [facility]) [facility] OUTPATIENT [id number] back pain RASHMISHELLELISA M 11/08 Released w/o Limitations [facility]) TELE CONSULT [id number] Notes Entered by: BERTIN ISBELL 27 Dec 2015 1359 ------- ------- ------- ------- -- Results Rec'd - Pain Clinic Dec 02 JOSE MARX 12/26 RADHA [facility] [place] [facility]) RAD[facility] [place]([facility] [place] [facility]) TELE CONSULT [id number] Notes Entered by: BERTIN ISBELL 09 Jan 2016 1441 ------- ------- ------- ------- -- Results Rec'd - Pain Clinic Jan 02 TSERING ROB 01/08 RADHA Franlkin([facility] [place] RADHA [place]([facility] [place]) TELE CONSULT [id number] Notes Entered by: DOMI MILLER 18 Jan 2016 1555 ------- ------- ------- ------- -- refill on HOME Sosa 01/17 RADHA [facility] [place] [facility] [facility] [place] TELE CONSULT [id number] Notes Entered by: DOMI MILLER 18 Jan 2016 1557 ------- ------- ------- ------- -- refill HOME [place] 01/17 RADHA [facility] [place] [facility] [place] TELE CONSULT [id number] Notes Entered by: LINH MARTINEZ 08 Feb 2016 1420 ------- ------- ------- ------- -- medicat ion refills JOSE MARX 02/07 RAD[facility] Tm 5[facility] [place] [facility] [facility]) OUTPATIENT [id number] RX REFILL/ NEW PATIENT APPT ROB CAGLE 02/22 Released w/o Limitations [facility]) [facility] [place] [facility] [facility]) TELE CONSULT [id number] Notes Entered by: GAIL COREAS 24 Feb 20162010 ------- ------- ------- ------- -- Coordin ate referra CAMELIA Roche 02/24 [facility]) [facility] [place] [facility] [facility]) OUTPATIENT [id number] Notes Entered by: CAMELIA VALLEJO 26 Feb 2016 1518 ------- ------- ------- ------- -- TCON/Ca camron rivera/C M Service s CAMELIA VALLEJO 02/25 Released w/o Limitations [facility] Tm 5) RAD[facility] [place] [facility]) TELE CONSULT [id number] Notes Entered by: ANNIE NAJERA 01 Mar 2016 1359 ------- ------- ------- ------- -- Results Rec'd- Pain Clinic 20 Feb 2016 ROB CAGLE 03/01 [facility]) [facility] Tm 5) TELE CONSULT [id number] Notes Entered by: BERTIN ISBELL 15 Mar 2016 1333 ------- ------- ------- ------- -- Results Rec'd - Urology Mar 05 ROB CAGLE 03/15 [facility]) [facility]) TELE CONSULT [id number] Notes Entered by: TRACEY MCKEON 01 Apr 2016 1057 ------- ------- ------- ------- -- Results Rec'd - Pain Managem ent ALEXIS BASILIA KING 04/01 RADHA [facility] [place]) [facility] [place] [facility] [facility]) OUTPATIENT [id number] pt states med refills BASILIA ESPINOZA 04/09 Released w/o Limitations [facility] [place] [facility] [facility]) RAD[facility](Manage d Care Admin) OUTPATIENT [id number] [facility] Care Coordin ELISA Garcia Abimael 04/09 Released w/o Limitations [facility]ha ged Care Admin) [facility] [place] [facility] [facility]) TELE CONSULT [id number] Notes Entered by: CAMRON KNOWLES 16 Apr 2016 1225 ------- ------- ------- ------- -- lab CECILIA FOSS 04/16 [facility] [place] [facility] [facility]) [facility] [place] [facility] [facility] OUTPATIENT [id number] ULTRASO UND RESULTS / LAB RESULTS / REFERRA L BASILIA ESPINOZA 05/01 Released w/o Limitations [facility] [place] [facility] [facility] [place] [facility] [facility] TELE CONSULT [id number] Notes Entered by: DAYANA ALLRED 02 Jul 2016 0931 ------- ------- ------- ------- -- Results receive d - Urology Progres s Notes *Multip le Dates* BASILIA ESPINOZA 07/02 RADHA Franklin([facility] [place] [facility] [facility] [facility] [place] [facility] [facility] OUTPATIENT [id number] SAAD Arias FOR A UNIVERS ITY,MRI RESULTS ,MEDICA TION RENEWAL BASILIA ESPINOZA 07/04 Released w/o Limitations RAD[facility]) [facility] TELE CONSULT [id number] Notes Entered by: DAYANA ALLRED 04 Jul 2016 1354 ------- ------- ------- ------- -- Results receive d - Urology Note 07/02/19 17 ROB CAGLE 07/04 [facility]) TELE CONSULT [id number] Notes Entered by: QUEENIE THOMAS 18 Jul 2016 1335 ------- ------- ------- ------- -- request ing titer CECILIA Skelton 07/18 [facility]) [facility]) OUTPATIENT [id number] WALK IN TB SCREEN NATHEN MCDANIEL 07/19 Released w/o Limitations [facility]) [facility]) OUTPATIENT [id number] walk in tb read BASILIA ESPINOZA 07/22 Released w/o Limitations [facility]) [facility]) OUTPATIENT [id number] walk in imms/te tnus BASILIA ESPINOZA 08/07 Released w/o Limitations [facility]) [facility]) OUTPATIENT [id number] walk in/tb read NATHEN MCDANIEL D 08/09 Released w/o Limitations [facility]) RADHA Franklin([facility] Tm 5) OUTPATIENT [id number] BASILIA Salinas 11/14 Released w/o Limitations RADHA Franklin([facility] Tm 5) RADHA Franklin([facility] S[facility]E [facility] 2) TELE CONSULT [id number] Notes Entered by: CHRISTINE HALL 20 Dec 2016 0929 ------- ------- ------- ------- -- Sole Provide r Program AKOSUA DAVILA 12/20 RADHA Franklin([facility] 2) [facility]) OUTPATIENT [id number] Notes Entered by: Abimael ROJO 18 Jan 2017 1136 ------- ------- ------- ------- -- er call LIYAH ROJO 01/18 Released w/o Limitations [facility]) [facility]) OUTPATIENT [id number] ANDREA MUHAMMAD 01/19 Sick at Home/Quarter s [facility]HA [facility]) [facility]) OUTPATIENT [id number] Follow up from ER LIYHA ROJO 01/20 Released w/o Limitations [facility]) [facility]) OUTPATIENT [id number] ER Follow up LIYAH ROJO 01/27 Released w/o Limitations [facility]) [facility]HA Franklin([facility] Tm 5) TELE CONSULT [id number] Notes Entered by: JUVE ELLIS 07 Mar 2017 0856 ------- ------- ------- ------- -- ENT referra l BASILIA ESPINOZA 03/07 RADHA Franklin([facility] [place] [facility] [facility] [facility]) OUTPATIENT [id number] Kushal CHASE FORTUNATO Gladys 03/12 Released w/o Limitations [facility]HA [facility] [place] [facility] [facility] OUTPATIENT [id number] pap, sti check, yeast infecti on JENNY MACDONALD 05/26 Released w/o Limitations RADHA [facility] [place] [facility] [facility] [place] [facility] [facility] TELE CONSULT [id number] Notes Entered by: JUVE ELLIS 27 May 2017 1334 ------- ------- ------- ------- -- Lab result EVELIA FRASER 05/27 Referred for Appointment [facility] [place] [facility] [facility] [facility] [place] [facility] [facility] OUTPATIENT [id number] Hair loss BASILIA ESPINOZA 09/11 Released w/o Limitations RADHA Franklin([facility]) RADHA Franklin([facility] [place] [facility] [facility] TELE CONSULT [id number] Notes Entered by: QUEENIE THOMAS 23 Sep 2017 1044 ------- ------- ------- ------- -- ALEXIS; LAB RESULTS BASILIA ESPINOZA 09/23 RADHA Franklin([facility]) [facility]HA [facility] [place] [facility] [facility] TELE CONSULT [id number] Notes Entered by: EVELIA FRASER 25 Sep 2017 1454 ------- ------- ------- ------- -- labs BASILIA ESPINOZA 09/25 RADHA Franklin([address] Tm 5) RADHA Franklin([address] Tm 5) TELE CONSULT [id number] Notes Entered by: QUEENIE THOMAS 30 Sep 2017 1618 ------- ------- ------- ------- -- white; lab/med EVELIA Kay 09/30 Referred for Appointment [facility]HA [facility] Tm 5) RADHA Franklin([address] Tm 5) OUTPATIENT [id number] general testing and labs ROB CAGLE 10/03 Released w/o Limitations RADHA Franklin([address] Tm 5) RADHA Franklin([address] Tm 5) TELE CONSULT [id number] Notes Entered by: QUEENIE THOMAS 10 Nov 2017 1529 ------- ------- ------- ------- -- noelle long; med refill EAGLE HENRY 11/10 Other Not Elsewhere Classified RADHA [facility] Tm 5) RADHA [facility] Tm 5) TELE CONSULT [id number] Notes Entered by: Janis TONEY 04 Dec 2017 1619 ------- ------- ------- ------- -- thyroid med refill EAGLE HENRY 12/04 Other Not Elsewhere Classified RADHA Franklin([address] Tm 5) [facility] OUTPATIENT [id number] ROSCOE VILLAREAL 01/18 Immediate Referral [facility]HA [facility]) [facility]) OUTPATIENT [id number] JADEN SEARS 01/18 Released w/o Limitations [facility]) [facility]iat [facility]) OUTPATIENT [id number] 1 left pinky toe ANGELA CABRERA 01/19 Released w/o Limitations [facility]) Elmer Trent [facility] OUTPATIENT [id number] discuss medicat ion and thyroid and full blood test before PCS JENNY MACDONALD 01/30 Released w/o Limitations [facility]) TELE CONSULT [id number] 7 Notes Entered by: JUVE ELLIS 30 Jan 2018 1619 ------- ------- ------- ------- -- MED REFEAGLE TERRY 01/30 Other Not Elsewhere Classified [facility]) [facility] OUTPATIENT [id number] WALK IN TB READ NATHEN MCDANIEL 02/02 Released w/o Limitations [facility] TELE CONSULT [id number] Notes Entered by: SYLVIA CODY 03 Feb 2018 0855 ------- ------- ------- ------- -- Med refill EAGLE HENRY 02/03 Other Not Elsewhere Classified [facility]) [facility]) TELE CONSULT [id number] Notes Entered by: SYLVIA CODY R 05 Feb 2018 1528 ------- ------- ------- ------- -- Lab results EAGLE HENRY 02/05 Other Not Elsewhere Classified [facility] TELE CONSULT [id number] Notes Entered by: JOSH BENZ 26 Feb 2018 1733 ------- ------- ------- ------- -- Lab Questio ns/Poss ible Med change EAGLE HENRY 02/26 Other Not Elsewhere Classified RADHA Franklin([facility] Tm 5[facility] RADHA Franklin([facility] Tm 5) OUTPATIENT [id number] med refills , labs, referra l, discuss new med ROB CAGLE 06/30 Released w/o Limitations RADHA [facility] Tm 5) [facility] Tm 5) TELE CONSULT [id number] Notes Entered by: SYLVIA CODY 16 Oct 2018 0945 ------- ------- ------- ------- -- Lab result EAGLE HENRY 10/16 RADHA Franklin([facility] Tm 5) Procedures Combined list of: 1) Procedures from Department of Veterans Affairs facilities going back up to thelast 18 months, not all VA non-surgical procedures are included; 2) All procedures from the Department of Defense facilities. Procedure Procedure Type Code Date Perfomer Comments Sourc e Psychometric Emotional / Behavioral A e ment Psychometric Emotional / Behavioral Assessment 59469 ROB ESQUIVEL TACOS-7=11 [facility] Psychotherapy Individual Approx 30 Min W/ Medical Evaluation & Management Psychotherapy Individual Approx 30 Min W/ Medical Evaluation & Management 39289 018 KARO GARCIA [facility] Psychotherapy Individual Approx 30 Min W/ Medical Evaluation & Management Psychotherapy Individual Approx 30 Min W/ Medical Evaluation & Management 46315 018 KARO GARCIA [facility] Psychotherapy Individual Approx 30 Min W/ Medical Evaluation & Management Psychotherapy Individual Approx 30 Min W/ Medical Evaluation & Management 84399 018 KARO GARCIA [facility] Ophthalmological Prior Patient Start Intermediate Level Care Ophthalmological Prior Patient Start Intermediate Level Care [phone] LIYAH ROJO Services Requested For Evenings, Weekends, Or Holidays Services Requested For Evenings, Weekends, Or Holidays [phone] LIYAH ROJO Ophthalmological New Patient Start Intermediate Level Care Ophthalmological New Patient Start Intermediate Level Care 72626 017 LIYAH ROJO Ophthalmological Prior Patient Start Intermediate Level Care Ophthalmological Prior Patient Start Intermediate Level Care 66416 017 LIYAH ROJO Psychotherapy Individual Approx 30 Min W/ Medical Evaluation & Management Psychotherapy Individual Approx 30 Min W/ Medical Evaluation & Management 80473 017 ALYSON DICKERSON Psychotherapy Individual Approx 30 Min W/ Medical Evaluation & Management Psychotherapy Individual Approx 30 Min W/ Medical Evaluation & Management 57302 017 ALYSON DICKERSON Psychiatric Therapy Family (Conjoint) Psychiatric Therapy Family (Conjoint) 85026 017 AGUILA NICHOLS Psychiatric Therapy Family (Conjoint) Psychiatric Therapy Family (Conjoint) [phone] AGUILA NICHOLS Immunization Administration By Injection, One Vaccine Immunization Administration By Injection, One Vaccine 83234 017 BASILIA ESPINOZA [facility] Skin Test Anergy Tuberculin Intradermal Skin Test Anergy Tuberculin Intradermal 28607 017 BASILIA ESPINOZA IPPD; Series #: 1; .1 mL; ID; Right Arm; Mfg: [employer]; Lot: [id number]. [facility] Psychiatric Therapy Family (Conjoint) Psychiatric Therapy Family (Conjoint) 06245 017 AGUILA NICHOLS Skin Test Anergy Tuberculin Intradermal Skin Test Anergy Tuberculin Intradermal 27487 017 CAYETANO MILLER IPPD; Series #: 1; .1 mL; ID; Right Arm; Mfg: [employer]; Lot: [id number]; VIS given. [facility] Family Medical Psychotherapy Without Patient Present Family Medical Psychotherapy Without Patient Present 33303 AGUILA NICHOLS Family Medical Psychotherapy Without Patient Present Family Medical Psychotherapy Without Patient Present 24078 017 AGUILA NICHOLS [facility] Psychotherapy Individual Approximately 60 Minutes Psychotherapy Individual Approximately 60 Minutes 74858 017 AGUILA NICHOLS DoD Psychotherapy Individual Approximately 60 Minutes Psychotherapy Individual Approximately 60 Minutes 33291 017 AGUILA NICHOLS Psychotherapy Individual Approx 30 Min W/ Medical Evaluation & Management Psychotherapy Individual Approx 30 Min W/ Medical Evaluation & Management 93319 017 ALYSON DICKERSON [facility] Psychiatric Diagnostic Evaluation With Medical Evaluation And Management Psychiatric Diagnostic Evaluation With Medical Evaluation And Management 87309 017 ALYSON DICKERSON DoD Case Management, each 15 minutes 017 ELISA BENZ AT 9, 16 DoD Coordinated care fee, maintenance rate 017 ELISA BENZ DoD Case Management, each 15 minutes 017 CAMELIA VALLEJO Acuity tracker 9 DoD Coordinated care fee, risk adjusted maintenance 017 CAMELIA VALLEJO DoD Psychotherapy Individual Approximately 60 Minutes 016 FRAN ENCARNACION [facility] Psychotherapy Individual Approximately 60 Minutes 016 FRAN ENCARNACION [facility] Family Medical Psychotherapy Without Patient Present 016 AGUILA NICHOLS [facility] Injection, ketorolac tromethamine, per 15 mg 016 ELISA CARABALLO The patient received an intramuscluar injection of Ketorolac tromethamine 60 mg in the right gluteal muscle, per provider's orders. The patient rated their lower back pain prior to the injection as a 7/10. Patient was instruced on the sign and sypmtoms of an adverse reaction and was then observed in [facility] for 20 minutes. Patient after 20 min was without signs or symptoms of any adverse reaction. Patient was educated on changes in pain and how to follow up if needed. Patient verbalized understanding and denies any further questions or concerns. The patient rated the lower back pain after the injection as a same: 7/10. The lot number for the medication was [id number]. Expiration date was 10/2016. [facility] Physician Supervised Injection Intramuscular Physician Supervised Injection Intramuscular 91320 ELISA CARABALLO [facility] Wet brandon, including preparations of vaginal, cervical or skin specimens MARIANELA CHARLES [facility] Screening papanicolaou smear; obtaining, preparing and conveyance of cervical or vaginal smear to laboratory MARIANELA CHARLES [facility] Non-Physician Phone Call To Patient/Provider Brief (5-10min) Non-Physician Phone Call To Patient/Provider Brief (5-10min) 72396 RUBY CHANG [facility] Clinical Social Work Individual Outpatient Counseling 30 Minutes JUAN COLIN [facility] Case Management, each 15 minutes CAMELIA VALLEJO acuity tracker 9 [facility] Coordinated care fee, maintenance rate CAMELIA VALLEJO [facility] Medication Management By Pharmacist Initial 15 Minutes Established Patient Medication Management By Pharmacist Initial 15 Minutes Established Patient 35898 CHRISTIANA BECK [facility] Lumbar orthosis, sagittal control, with rigid posterior panel(s), posterior extends from L-1 to below L-5 vertebra, produces intracavitary pre ure to reduce load on the intervertebral discs, includes straps, closures, may include padding, stays, shoulder straps, pendulous abdomen design, prefabricated item that has been trimmed, bent, molded, a embled, or otherwise customized to fit a specific patient by an individual with expertise 015 FORTUNATO HARPER [facility] Manipulation By Physician, Additional Area Manipulation By Physician, Additional Area 07684 SHO VANEGAS [facility] Lumbar-sacral orthosis, sagittal control, with rigid anterior and posterior panels, posterior extends from sacrococcygeal junction to T-9 vertebra, produces intracavitary pre ure to reduce load on the intervertebral discs, includes straps, closures, may include padding, shoulder straps, pendulous abdomen design, prefabricated, includes fitting and adjustment FORTUNATO HARPER [facility] Orthopedic Splinting Short Arm Orthopedic Splinting Short Arm 68049 ARMANDO ESPARZA I [facility] Modalities Cryotherapy Cold Packs Modalities Cryotherapy Cold Packs 78300 ISELA YIN INSTRUCTED ON USE AND PRECUATIONS [facility] Orthopedic Splinting Short Arm Orthopedic Splinting Short Arm 59644 ISELA YIN THUMB SPICA APPLIED CAPILLARY REFILL LESS 2 SECS, PT TOLERATED PROCEDURE, WILL F/U WITH ORTHO INSTRUCTED VOICED COMPLIANCE. [facility] Determination Of Refractive State Determination Of Refractive State [phone] HOME JIANG [facility] Ophthalmological New Patient Start Comprehensive Care Ophthalmological New Patient Start Comprehensive Care 89267 011 HOME JIANG [facility] Lumbar orthosis, sagittal control, with rigid posterior panel(s), posterior extends from L-1 to below L-5 vertebra, produces intracavitary pre ure to reduce load on the intervertebral discs, includes straps, closures, may include padding, stays, shoulder straps, pendulous abdomen design, prefabricated, includes fitting and adjustment 011 FORTUNATO HARPER [facility] Lumbar orthosis, sagittal control, with rigid posterior panel(s), posterior extends from L-1 to below L-5 vertebra, produces intracavitary pre ure to reduce load on the intervertebral discs, includes straps, closures, may include padding, stays, shoulder straps, pendulous abdomen design, prefabricated, includes fitting and adjustment 011 TIMO HERNANDEZ Non-Stre Test (___ 0,2) Non-Stress Test (___ 0,2) 09956 007 MARISEL HONG Biophysical Profile With Non-Stre Testing Biophysical Profile With Non-Stress Testing 53397 007 MARISEL HONG Biophysical Profile With Non-Stre Testing Biophysical Profile With Non-Stress Testing 70436 007 MARISEL HONG Non-Stre Test (___ 0,2) Non-Stress Test (___ 0,2) 58243 007 MARISEL HONG Ultrasound Obstetric Limited Evaluation Ultrasound Obstetric Limited Evaluation 70849 HOME FALL Non-Stre Test (___ 0,2) Non-Stress Test (___ 0,2) 48933 [place]ALL Biophysical Profile With Non-Stre Testing Biophysical Profile With Non-Stress Testing 08481 007 MARISEL HONG Non-Stre Test (___ 0,2) Non-Stress Test (___ 0,2) 62619 007 [place] FALL Ultrasound Obstetric Limited Evaluation Ultrasound Obstetric Limited Evaluation 06019 007 [place] Vaginal CRISPIN Prep Vaginal CRISPIN Prep 65560 [place]ALL Wet brandon, including preparations of vaginal, cervical or skin specimens 007 HOME FALL Biophysical Profile With Non-Stre Testing Biophysical Profile With Non-Stress Testing 95392 007 MARISEL HONG Obstetrical Services External Monitor Placement Obstetrical Services External Monitor Placement 24325 007 PRO HOLGUIN Non-Stre Test (___ 0,2) Non-Stress Test (___ 0,2) 70870 007 PRO HOLGUIN Ultrasound Obstetric Limited Evaluation Ultrasound Obstetric Limited Evaluation 02153 007 PRO HOLGUIN Obstetrical Services External Monitor Placement Obstetrical Services External Monitor Placement 34856 007 PRO HOLGUIN Biophysical Profile With Non-Stre Testing Biophysical Profile With Non-Stress Testing 59112 007 MARISEL HONG Biophysical Profile With Non-Stre Testing Biophysical Profile With Non-Stress Testing 76329 007 MARISEL HONG Ultrasound Obstetric Limited Evaluation Ultrasound Obstetric Limited Evaluation 75289 007 ALONSO OWENS Non-Stre Test (___ 0,2) Non-Stress Test (___ 0,2) 82420 007 ALONSO OWENS [facility] Patient Training And Self-Care Skills Patient Training And Self-Care Skills 55795 007 HECTOR LARKIN Physician Supervised Services Provision Of Special Supplies Physician Supervised Services Provision Of Special Supplies 14474 007 HECTOR LARKIN Physician Supervised Services Provision Of Educational Supplies Physician Supervised Services Provision Of Educational Supplies 63537 007 HECTOR LARKIN Physical Therapy Service Evaluation Physical Therapy Service Evaluation 18981 007 JENNY LARKINASIF Bruce [facility] Psychiatric Therapy Preparation of Psychiatric Status Report Psychiatric Therapy Preparation of Psychiatric Status Report 32213 007 KARO CASTELLANOS [facility] Clinical Social Work Counseling Marital 007 KARO CASTELLANOS Psychiatric Diagnostic Evaluation Review of Records and Reports Psychiatric Diagnostic Evaluation Review of Records and Reports 57465 007 KARO CASTELLANOS [facility] Psychiatric Therapy Preparation of Psychiatric Status Report Psychiatric Therapy Preparation of Psychiatric Status Report 35352 007 KARO CASTELLANOS [facility] Clinical Social Work Counseling Marital 007 KARO CASTELLANOS [facility] Psychiatric Diagnostic Evaluation Review of Records and Reports Psychiatric Diagnostic Evaluation Review of Records and Reports 62746 007 KARO CASTELLANOS [facility] Ultrasound Obstetric Limited Evaluation Ultrasound Obstetric Limited Evaluation 43121 007 PRO HOLGUIN I [facility] Patient education, not otherwise cla ified, non-physician provider, group, per se ion 007 MARISEL HONG [facility] Ultrasound Trans[place] [address] 007 PRO HOLGUIN Screening papanicolaou smear; obtaining, preparing and conveyance of cervical or vaginal smear to laboratory 006 PRO HOLGUIN Cervical or vaginal cancer screening; pelvic and clinical breast examination 006 PRO HOLGUIN I [facility] KO, elastic with stays, prefabricated, includes fitting and adjustment 006 TERRELL GUIDRY [facility] Physical Medicine - Group Physical Therapy [facility] Physical Medicine - Group Physical Therapy Session 25932 006 JUAN F SHAH [facility] Physical Therapy Service Evaluation Physical Therapy Service Evaluation 03492 006 [facility] Phys Therapy Education Self Care Training - Per 15 Minutes Phys Therapy Education Self Care Training - Per 15 Minutes 42881 006 [facility] Ophthalmological Prior Patient Start Intermediate Level Care Ophthalmological Prior Patient Start Intermediate Level Care 25554 005 MERA GERARDO [facility] Non-Physician Phone Call To Patient/Provider Brief (5-10min) Non-Physician Phone Call To Patient/Provider Brief (5-10min) 78351 ROB CAGLE [facility] COLPOSCOPY OF THE CERVIX INCLUDING UPPER/ADJACENT VAGINA; [facility] INFECTIOUS AGENT ANTIGEN DETECTION BY IMMUNOASSAY WITH DIRECT OPTICAL (IE, VISUAL) OBSERVATION; NEISSERIA GONORRHOEAE [facility] INSERTION OF CATHETER INTO SPINAL CANAL FOR INFUSION OF THERAPEUTIC OR PALLIATIVE SUBSTANCES [facility] MANUAL EXPLORATION OF UTERINE CAVITY, [facility] MANUAL REMOVAL OF RETAINED PLACENTA [facility] OTHER DIAGNOSTIC PROCEDURES ON FETUS AND AMNION [facility] EKG (SCALP) [facility] EPISIOTOMY [facility] OTHER ARTIFICIAL RUPTURE OF MEMBRANES [facility] AMNIOINFUSION [facility] SELF-CARE/HOME MANAGMENT TRAIN (EG,ACT OF DAILY LIVING (ADL) &COMPENSAT TRAIN,MEAL PREPARATION,SAFETY PROCS,AND INSTRUCT IN USE OF ASST TECHNOLOGY DEV/ADPT EQUIP) DIR ONE-ON-ONE CONT,EA 15 MINUTES [facility] FITTING AND INSERTION OF PESSARY OR OTHER INTRAVAGINAL SUPPORT DEVICE [facility] NON-STRESS TEST [facility] BIOPHYSICAL PROFILE; WITH NON-STRESS TESTING [facility] BIOPHYSICAL PROFILE; WITH NON-STRESS TESTING [facility] NON-STRESS TEST [facility] ULTRASOUND, UTERUS, REAL TIME WITH IMAGE DOCUMENTATION, LIMITED (EG, HEART BEAT, PLACENTAL LOCATION, POSITION AND/OR QUALITATIVE AMNIOTIC FLUID VOLUME), 1 OR MORE FETUSES [facility] BIOPHYSICAL PROFILE; WITH NON-STRESS TESTING [facility] TISSUE EXAMINATION BY CRISPIN SLIDE OF SAMPLES FROM SKIN, HAIR, OR NAILS FOR FUNGI OR ECTOPARASITE OVA OR MITES (EG, SCABIES) [facility] BIOPHYSICAL PROFILE; WITH NON-STRESS TESTING [facility] MONITORING DURING LABOR BY CONSULTING PHYSICIAN (IE, NON-ATTENDING PHYSICIAN) WITH WRITTEN REPORT; SUPERVISION AND INTERPRETATION [facility] ULTRASOUND, UTERUS, REAL TIME WITH IMAGE DOCUMENTATION, LIMITED (EG, HEART BEAT, PLACENTAL LOCATION, POSITION AND/OR QUALITATIVE AMNIOTIC FLUID VOLUME), 1 OR MORE FETUSES [facility] BIOPHYSICAL PROFILE; WITH NON-STRESS TESTING [facility] BIOPHYSICAL PROFILE; WITH NON-STRESS TESTING [facility] ULTRASOUND, UTERUS, REAL TIME WITH IMAGE DOCUMENTATION, LIMITED (EG, HEART BEAT, PLACENTAL LOCATION, POSITION AND/OR QUALITATIVE AMNIOTIC FLUID VOLUME), 1 OR MORE FETUSES [facility] SELF-CARE/HOME MANAGMENT TRAIN (EG,ACT OF DAILY LIVING (ADL) &COMPENSAT TRAIN,MEAL PREPARATION,SAFETY PROCS,AND INSTRUCT IN USE OF ASST TECHNOLOGY DEV/ADPT EQUIP) DIR ONE-ON-ONE CONT,EA 15 MINUTES [facility] PREPARATION OF REPORT OF PATIENT'S PSYCHIATRIC STATUS, HISTORY, TREATMENT, OR PROGRESS (OTHER THAN FOR LEGAL OR CONSULTATIVE PURPOSES) FOR OTHER INDIVIDUALS, AGENCIES, OR INSURANCE CARRIERS [facility] PREPARATION OF REPORT OF PATIENT'S PSYCHIATRIC STATUS, HISTORY, TREATMENT, OR PROGRESS (OTHER THAN FOR LEGAL OR CONSULTATIVE PURPOSES) FOR OTHER INDIVIDUALS, AGENCIES, OR INSURANCE CARRIERS [facility] ULTRASOUND, UTERUS, REAL TIME WITH IMAGE DOCUMENTATION, LIMITED (EG, HEART BEAT, PLACENTAL LOCATION, POSITION AND/OR QUALITATIVE AMNIOTIC FLUID VOLUME), 1 OR MORE FETUSES [facility] PATIENT EDUCATION, NOT OTHERWISE CLASSIFIED, NON-PHYSICIAN PROVIDER, GROUP, PER SESSION [facility] ULTRASOUND, UTERUS, REAL TIME WITH IMAGE DOCUMENTATION,TRANS VAGINAL [facility] SCREENING PAPANICOLAOU SMEAR; OBTAINING, PREPARING AND CONVEYANCE OF CERVICAL OR VAGINAL SMEAR TO LABORATORY [facility] INJECTION, PROMETHAZINE HCL, UP TO 50 MG DoD KNEE ORTHOSIS (KO), ELASTIC WITH STAYS, PREFABRICATED, INCLUDES FITTING AND ADJUSTMENT [facility] THERAPEUTIC PROCEDURE(S), GROUP (2 OR MORE INDIVIDUALS) [facility] SELF-CARE/HOME MANAGMENT TRAIN (EG,ACT OF DAILY LIVING (ADL) &COMPENSAT TRAIN,MEAL PREPARATION,SAFETY PROCS,AND INSTRUCT IN USE OF ASST TECHNOLOGY DEV/ADPT EQUIP) DIR ONE-ON-ONE CONT,EA 15 MINUTES [facility] OPHTHALMOLOGICAL SERVICES: MEDICAL EXAMINATION AND EVALUATION, WITH INITIATION OR CONTINUATION OF DIAGNOSTIC AND TREATMENT PROGRAM; INTERMEDIATE, ESTABLISHED PATIENT 005 [facility] CYTOPATHOLOGY; PAP SMEAR, PRESERVED, AUTO THIN LAYER, MAX 3 DoD MEDICAL INDUCTION OF LABOR DoD INDUCTION OF LABOR BY ARTIFICIAL RUPTURE OF MEMBRANES DoD VAGINAL DELIVERY ONLY (WITH OR WITHOUT EPISIOTOMY AND/OR FORCEPS); DoD ULTRASOUND, UTERUS, REAL TIME WITH IMAGE DOCUMENTATION, LIMITED (EG, HEART BEAT, PLACENTAL LOCATION, POSITION AND/OR QUALITATIVE AMNIOTIC FLUID VOLUME), 1 OR MORE FETUSES DoD INFECTIOUS AGENT ANTIGEN DETECTION BY IMMUNOASSAY WITH DIRECT OPTICAL (IE, VISUAL) OBSERVATION; STREPTOCOCCUS, GROUP B DoD ULTRASOUND, UTERUS, REAL TIME WITH IMAGE DOCUMENTATION, LIMITED (EG, HEART BEAT, PLACENTAL LOCATION, POSITION AND/OR QUALITATIVE AMNIOTIC FLUID VOLUME), 1 OR MORE FETUSES DoD ULTRASOUND, UTERUS, REAL TIME WITH IMAGE DOCUMENTATION, LIMITED (EG, HEART BEAT, PLACENTAL LOCATION, POSITION AND/OR QUALITATIVE AMNIOTIC FLUID VOLUME), 1 OR MORE FETUSES DoD ULTRASOUND, UTERUS, REAL TIME WITH IMAGE DOCUMENTATION, LIMITED (EG, HEART BEAT, PLACENTAL LOCATION, POSITION AND/OR QUALITATIVE AMNIOTIC FLUID VOLUME), 1 OR MORE FETUSES DoD ULTRASOUND, UTERUS, REAL TIME WITH IMAGE DOCUMENTATION, LIMITED (EG, HEART BEAT, PLACENTAL LOCATION, POSITION AND/OR QUALITATIVE AMNIOTIC FLUID VOLUME), 1 OR MORE FETUSES DoD INJECTION, METOCLOPRAMIDE HCL, UP TO 10 MG DoD INJECTION, METOCLOPRAMIDE HCL, UP TO 10 MG DoD ULTRASOUND, UTERUS, REAL TIME WITH IMAGE DOCUMENTATION, LIMITED (EG, HEART BEAT, PLACENTAL LOCATION, POSITION AND/OR QUALITATIVE AMNIOTIC FLUID VOLUME), 1 OR MORE FETUSES DoD ULTRASOUND, TRANSVAGINAL DoD ULTRASOUND, TRANSVAGINAL DoD INTRODUCTION OF NEEDLE OR INTRACATHETER, VEIN DoD INJECTION, KETOROLAC TROMETHAMINE, PER 15 MG DoD LAPAROSCOPY, SURGICAL; WITH LYSIS OF ADHESIONS (SALPINGOLYSIS, OVARIOLYSIS) (SEPARATE PROCEDURE) DoD NONINVASIVE EAR OR PULSE OXIMETRY FOR OXYGEN SATURATION; SINGLE DETERMINATION DoD UNLISTED NEUROLOGICAL OR NEUROMUSCULAR DIAGNOSTIC PROCEDURE [facility] INJECTION, DIPHENHYDRAMINE HCL, UP TO 50 MG DoD UNLISTED NEUROLOGICAL OR NEUROMUSCULAR DIAGNOSTIC PROCEDURE [facility] INJECTION, PROMETHAZINE HCL, UP TO 50 MG [facility] INDIVIDUAL PSYCHOTHERAPY, INSIGHT ORIENTED, BEHAVIOR MODIFYING AND/OR SUPPORTIVE, IN AN OFFICE OR OUTPATIENT FACILITY, APPROXIMATELY 45 TO 50 MINUTES [id number] WITH THE PATIENT [facility] THERAPEUTIC OR DIAGNOSTIC INJECTION (SPECIFY MATERIAL INJECTED); INTRAVENOUS [facility] CRUTCHES, FOREARM, INCLUDES CRUTCHES OF VARIOUS MATERIALS, ADJUSTABLE OR FIXED, PAIR, COMPLETE WITH TIPS AND HANDGRIPS [facility] ULTRASOUND, TRANSVAGINAL COLLECTION OF VENOUS BLOOD BY VENIPUNCTURE [facility] TELE ASSESS & MGT SRV PROV QUAL NONPHYS HLTH CARE PRO TO EST PAT,PARENT,GUARD NOT ORIG REL ASSESS & MGT SRV PROV W/IN PREV 7 DAYS NOR LEAD ASSESS & MGT SRV/PX W/IN NXT 24 HR/SOON APT;5-10 MIN MED DIS [facility] BRIEF EMOTIONAL/BEHAVIORA L ASSESSMENT (EG, DEPRESSION INVENTORY, ATTENTION-DEFICIT/H YPERACTIVITY DISORDER [ADHD] SCALE), WITH SCORING AND DOCUMENTATION, PER STANDARDIZED INSTRUMENT [facility] PSYCHOTHERAPY, 30 MINUTES WITH PATIENT WHEN PERFORMED WITH AN EVALUATION AND MANAGEMENT SERVICE (LIST SEPARATELY IN ADDITION TO THE CODE FOR PRIMARY PROCEDURE) [facility] UNLISTED SPECIAL SERVICE, PROCEDURE OR REPORT [facility] INJECTION, PROMETHAZINE HCL, UP TO 50 MG [facility] PSYCHOTHERAPY, 30 MINUTES WITH PATIENT WHEN PERFORMED WITH AN EVALUATION AND MANAGEMENT SERVICE (LIST SEPARATELY IN ADDITION TO THE CODE FOR PRIMARY PROCEDURE) [facility] PSYCHOTHERAPY, 30 MINUTES WITH PATIENT WHEN PERFORMED WITH AN EVALUATION AND MANAGEMENT SERVICE (LIST SEPARATELY IN ADDITION TO THE CODE FOR PRIMARY PROCEDURE) [facility] LARYNGOSCOPY, FLEXIBLE; DIAGNOSTIC [facility] PSYCHOTHERAPY, 30 MINUTES WITH PATIENT WHEN PERFORMED WITH AN EVALUATION AND MANAGEMENT SERVICE (LIST SEPARATELY IN ADDITION TO THE CODE FOR PRIMARY PROCEDURE) [facility] DETERMINATION OF REFRACTIVE STATE [facility] OPHTHALMOLOGICAL SERVICES: MEDICAL EXAMINATION AND EVALUATION, WITH INITIATION OR CONTINUATION OF DIAGNOSTIC AND TREATMENT PROGRAM; COMPREHENSIVE, ESTABLISHED PATIENT, 1 OR MORE VISITS DoD SERVICE(S) PROVIDED IN THE OFFICE DURING REGULARLY SCHEDULED EVENING, WEEKEND, OR HOLIDAY OFFICE HOURS, IN ADDITION TO BASIC SERVICE DoD INJECTION, KETOROLAC TROMETHAMINE, PER 15 MG DoD BRIEF EMOTIONAL/BEHAVIORA L ASSESSMENT (EG, DEPRESSION INVENTORY, ATTENTION-DEFICIT/H YPERACTIVITY DISORDER [ADHD] SCALE), WITH SCORING AND DOCUMENTATION, PER STANDARDIZED INSTRUMENT DoD FAMILY PSYCHOTHERAPY (CONJOINT PSYCHOTHERAPY) (WITH PATIENT PRESENT), 50 MINUTES DoD BRIEF EMOTIONAL/BEHAVIORA L ASSESSMENT (EG, DEPRESSION INVENTORY, ATTENTION-DEFICIT/H YPERACTIVITY DISORDER [ADHD] SCALE), WITH SCORING AND DOCUMENTATION, PER STANDARDIZED INSTRUMENT DoD FAMILY PSYCHOTHERAPY (CONJOINT PSYCHOTHERAPY) (WITH PATIENT PRESENT), 50 MINUTES DoD FAMILY PSYCHOTHERAPY (CONJOINT PSYCHOTHERAPY) (WITH PATIENT PRESENT), 50 MINUTES DoD PSYCHOTHERAPY, 60 MINUTES WITH PATIENT 017 DoD FAMILY PSYCHOTHERAPY (CONJOINT PSYCHOTHERAPY) (WITH PATIENT PRESENT), 50 MINUTES DoD PSYCHOTHERAPY, 60 MINUTES WITH PATIENT DoD PSYCHOTHERAPY, 30 MINUTES WITH PATIENT WHEN PERFORMED WITH AN EVALUATION AND MANAGEMENT SERVICE (LIST SEPARATELY IN ADDITION TO THE CODE FOR PRIMARY PROCEDURE) DoD FAMILY PSYCHOTHERAPY (CONJOINT PSYCHOTHERAPY) (WITH PATIENT PRESENT), 50 MINUTES DoD FAMILY PSYCHOTHERAPY (CONJOINT PSYCHOTHERAPY) (WITH PATIENT PRESENT), 50 MINUTES DoD FAMILY PSYCHOTHERAPY (CONJOINT PSYCHOTHERAPY) (WITH PATIENT PRESENT), 50 MINUTES DoD SKIN TEST; TUBERCULOSIS, INTRADERMAL 017 DoD PSYCHOTHERAPY, 60 MINUTES WITH PATIENT 017 DoD FAMILY PSYCHOTHERAPY (CONJOINT PSYCHOTHERAPY) (WITH PATIENT PRESENT), 50 MINUTES DoD SKIN TEST; TUBERCULOSIS, INTRADERMAL 017 DoD FAMILY PSYCHOTHERAPY (WITHOUT THE PATIENT PRESENT), 50 MINUTES 017 DoD FAMILY PSYCHOTHERAPY (WITHOUT THE PATIENT PRESENT), 50 MINUTES DoD PSYCHOTHERAPY, 60 MINUTES WITH PATIENT 017 DoD PSYCHOTHERAPY, 60 MINUTES WITH PATIENT DoD FAMILY PSYCHOTHERAPY (CONJOINT PSYCHOTHERAPY) (WITH PATIENT PRESENT), 50 MINUTES DoD FAMILY PSYCHOTHERAPY (CONJOINT PSYCHOTHERAPY) (WITH PATIENT PRESENT), 50 MINUTES DoD PSYCHOTHERAPY, 30 MINUTES WITH PATIENT WHEN PERFORMED WITH AN EVALUATION AND MANAGEMENT SERVICE (LIST SEPARATELY IN ADDITION TO THE CODE FOR PRIMARY PROCEDURE) DoD FAMILY PSYCHOTHERAPY (CONJOINT PSYCHOTHERAPY) (WITH PATIENT PRESENT), 50 MINUTES DoD PSYCHOTHERAPY, 60 MINUTES WITH PATIENT DoD PSYCHOTHERAPY, 60 MINUTES WITH PATIENT DoD PSYCHOTHERAPY, 60 MINUTES WITH PATIENT DoD PSYCHIATRIC DIAGNOSTIC EVALUATION WITH MEDICAL SERVICES [facility] CASE MANAGEMENT, EACH 15 MINUTES DoD PSYCHOTHERAPY, 60 MINUTES WITH PATIENT DoD CASE MANAGEMENT, EACH 15 MINUTES DoD FAMILY PSYCHOTHERAPY (CONJOINT PSYCHOTHERAPY) (WITH PATIENT PRESENT), 50 MINUTES DoD FAMILY PSYCHOTHERAPY (CONJOINT PSYCHOTHERAPY) (WITH PATIENT PRESENT), 50 MINUTES DoD FAMILY PSYCHOTHERAPY (CONJOINT PSYCHOTHERAPY) (WITH PATIENT PRESENT), 50 MINUTES DoD PSYCHOTHERAPY, 60 MINUTES WITH PATIENT DoD PSYCHOTHERAPY, 60 MINUTES WITH PATIENT DoD PSYCHOTHERAPY, 60 MINUTES WITH PATIENT DoD FAMILY PSYCHOTHERAPY (WITHOUT THE PATIENT PRESENT), 50 MINUTES DoD FAMILY PSYCHOTHERAPY (CONJOINT PSYCHOTHERAPY) (WITH PATIENT PRESENT), 50 MINUTES SCREENING PAPANICOLAOU SMEAR; OBTAINING, PREPARING AND CONVEYANCE OF CERVICAL OR VAGINAL SMEAR TO LABORATORY [facility] TELE ASSESS & MGT SRV PROV QUAL NONPHYS HLTH CARE PRO TO EST PAT,PARENT,GUARD NOT ORIG REL ASSESS & MGT SRV PROV W/IN PREV 7 DAYS NOR LEAD ASSESS & MGT SRV/PX W/IN NXT 24 HR/SOON APT;5-10 MIN MED DIS DoD PSYCHOTHERAPY, 30 MINUTES WITH PATIENT [facility] CASE MANAGEMENT, EACH 15 MINUTES BRIEF EMOTIONAL/BEHAVIORA L ASSESSMENT (EG, DEPRESSION INVENTORY, ATTENTION-DEFICIT/H YPERACTIVITY DISORDER [ADHD] SCALE), WITH SCORING AND DOCUMENTATION, PER STANDARDIZED INSTRUMENT 05/25/2 016 DoD BRIEF EMOTIONAL/BEHAVIORA L ASSESSMENT (EG, DEPRESSION INVENTORY, ATTENTION-DEFICIT/H YPERACTIVITY DISORDER [ADHD] SCALE), WITH SCORING AND DOCUMENTATION, PER STANDARDIZED INSTRUMENT DoD MEDICATION THERAPY MANAGEMENT SERVICE(S) PROVIDED BY A PHARMACIST, INDIVIDUAL, [id number] WITH PATIENT, WITH ASSESSMENT AND INTERVENTION IF PROVIDED; INITIAL 15 MINUTES, ESTABLISHED PATIENT 015 DoD LUMB ORTHO,SAG CTRL,RIG PST KHOURY,PST EXT FRM L-1 TO BELOW L-5 VERT,PROD INTRACAV PRES TO RED LOAD ON INTERVER DSC,STRP,CLOS,PAD,S ROBERTO,SHLD STRP,PEN AB,PREFAB,TRIM,BNT, MLD,ASSEM/CUST FIT PAT,INDIV W EXP 015 DoD MANUAL THERAPY TECHNIQUES (EG, MOBILIZATION/ MANIPULATION, MANUAL LYMPHATIC DRAINAGE, MANUAL TRACTION), 1 OR MORE REGIONS, EACH 15 MINUTES 013 DoD LUMB-SAC ORTH,SAG CTR,RIG ANT&PST KHOURY,PST EXT FRM SAC JCT TO T-9 VERT,PROD INTRACAV PRES TO RED LOAD ON INTERVER DSC,STRP,CLOS,PAD,S HLD STRP,PEN AB MATTHEW,PREFAB,TRIM,BNT ,MOLD,ASSEM/CUST,PA T,INDIV W EXP 013 DoD APPLICATION OF SHORT ARM SPLINT (FOREARM TO HAND); STATIC 013 DoD APPLICATION OF SHORT ARM SPLINT (FOREARM TO HAND); STATIC 013 DoD SPLINT 013 DoD INJECTION, KETOROLAC TROMETHAMINE, PER 15 MG 012 DoD DETERMINATION OF REFRACTIVE STATE 011 DoD LUMB ORTHO,SAG CTRL,RIG PST KHOURY,PST EXT FRM L-1 TO BELOW L-5 VERT,PROD INTRACAV PRES TO RED LOAD ON INTERVER DSC,STRP,CLOS,PAD,S ROBERTO,SHLD STRP,PEN AB,PREFAB,TRIM,BNT, MLD,ASSEM/CUST FIT PAT,INDIV W EXP 011 DoD LUMB ORTHO,SAG CTRL,RIG PST KHOURY,PST EXT FRM L-1 TO BELOW L-5 VERT,PROD INTRACAV PRES TO RED LOAD ON INTERVER DSC,STRP,CLOS,PAD,S ROBERTO,SHLD STRP,PEN AB,PREFAB,TRIM,BNT, MLD,ASSEM/CUST FIT PAT,INDIV W EXP 011 DoD INJECTION, LORAZEPAM, 2 MG 010 DoD INJECTION, PROMETHAZINE HCL, UP TO 50 MG 009 DoD Social History Combined list of available smoking, tobacco, and other social history from Department of Defense and Veterans Affairs facilities. Social History Type Response Date Comment Sour e This section is an empty social history section. DoD
--- OUTSIDE RECORDS SUMMARY | 2023-09-01 22:53 | XMS_ITS | Continuity of Care Document ---
Author Organization [facility] Address [address] [place] [address] Phone Care Team Providers Care Rotary Drill Operator Helper Name Role Phone Courtney WONG, PhD, Jhon Unavailable Unavai lable Allergies, Adverse Reactions, Alerts Substance Reaction Status Criticality Sulfa (Sulfonamide Antibiotics) Active No Information tramadol Active No Information Medications Medication Instructions Dosage Effective Dates (start - stop) Status Comments AMBIEN (unknown strength) Not Available - Active KLONOPIN (unknown strength) Not Available - Active CYCLOBENZAPRINE HCL (unknown strength) Not Available - Active DIAZEPAM (unknown strength) Not Available - Active HYDROXYZINE HCL (unknown strength) Not Available - Active OxyContin 10 mg 12 hr Tab - No Longer Active Vicodin ES 7.5 mg-750 mg Tab - No Longer Active Valium 5 mg Tab - No Longer Active Vistaril 25 mg Cap - No Longer Active Procedures Procedure Date Office/Outpatient Visit,New, [facility] 2019 Lumbar spine fusion, posterolateral Lumbar spine fus, pstr intrbdy sngl Insert spine fixation, posterior 2005 Apply spinal prosthetic device 06 Autograft, spine surgery, local 006 Postop followup visit X-ray exam lower spine 2-3 views 2005 Advance Directives Directive Yes / No Effective Date File Name No Information Encounters Encounter Description Practice Location Reason(s) For Visit Diagnoses Date Provider Providers Copied on Encounter [facility], [address], [place], [place], [id number], [place] tel:[phone] No Information 0 Courtney Ferreira. [facility], [address] [facility] [address], [place], [address], [place]. [phone] Office/Outpat ient Visit,New, Mod [facility], [address], [place], [place], [id number], [place] tel:[phone] [facility] Back pain 0 oCurtney Ferreira. [facility], [address], [place], [address], [place]. [phone] Referring Provider: Robby Varghese, [address], [address]. tel:[phone] Z [facility], [address] [facility], [place], [address], [place] tel:[phone] [facility] No Information 6 Alia Khan. [facility], [address] [place] [address], [address], [place]. [phone] Referring Provider: Bill Aguiar, U [address], [facility]. tel:[phone] Z [facility], [address] [facility] [address] [place] [address], [facility], [place] tel:[phone] [facility] No Information 6 Alia Khan. [facility], [address] [place] [address], [address], [place]. [phone] Referring Provider: Bill Aguiar, U [address], [facility]. tel:[phone] Family History Family Member Type Diagnosis Age At Onset No Information Payers Payer name Insurance type Covered green party ID Authoriza tion(s) [facility] [id number] [facility] [id number] Social History Type Description Quantity Date Captured Comments Sex Female Smoking Status No Information Chief Complaint And Reason For Visit No Information Reason For Referral Reason For Referral No Information History Of Present Illness Encounter Date Complaint History Of Prese nt Illness No Information Functional Status Date Functional Assessmen t No Information Instructions Date Instruction Additional Infor mation No Information Assessments Type Assessment Date No Information Patient Care Teams Name Effective Dates (start - stop) Status Members No Information
--- OUTSIDE RECORDS SUMMARY | 2023-09-01 22:53 | XMS_ITS | Referral Summary ---
Author Organization [facility] Address [address] [place] [address] Care Team Providers Care Cisco Consultant Name Role Phone Provider, No Primary Primary Care Provider Unava ilable Allergies Active Allergy Reactions Criticality Noted Date Comments Influenza Virus Vaccines Anaphylaxis / T hroat Swelling High 11/29/2020 Sulfa (Sulfonamide Antibiotics) Unknown Reaction Low 11/15/2020 Tramadol Anaphylaxis / Throat Swelling High 11/29/2020 Medications No known medications Active Problems No known active problems Social History Tobacco Use Types Packs/Day Years Used Date Smoking Tobacco: Former Smokeless Tobacco: Never Depression (PHQ-9) Answer Date Recorded Last PHQ-9 Score Not on file 11/15/2020 Thoughts of self harm Not on file 11/15/2020 Intimate Partner Violence Answer Date R ecorded Are you in a relationship wh ere you are physically hurt, threatened and/or made to feel afraid? No 05/23/2022 Sex and Gender Information Value Date Recorded Sex Assigned at Not on file Gender Identity Not on file Sexual Orientation Not on file Last Filed Vital Signs Vital Sign Reading Time Taken Comments Blood Pressure 117/79 05/02/2023 10:47 AM CDT Pulse 74 05/15/2022 4:02 PM CDT Temperature 36.2 ??C (97.2 ??F) 11/29/2020 1 1:51 AM CDT Respiratory Rate 18 05/02/2023 10:4 7 AM CDT Oxygen Saturation 98% 05/15/2022 4:02 PM CDT Inhaled Oxygen Concentration - - Weight 87.9 kg (193 lb 12.8 oz) 024 10:47 AM CDT Height 182.9 cm (6') 05/23/2022 1:22 PM CDT Body Mass Index 26.28 05/23/2022 1:22 PM CDT Functional Status Functional Status Response Date of Assess ment Are you deaf or do you have serious difficulty h earing? No 05/15/2022 Are you blind or do you have serious difficulty seeing, even when wearing glasses? No 05/15/2022 Do you have serious difficul ty walking or climbing stairs? No 05/15/2022 Do you have difficulty dressing or bathing? No 05/15/2022 Do you have difficulty doing errands alone such as visiting a doctor's office or shopping because of a physical, mental, or emotional condition? No 05/15/2022 Cognitive Status Response Date of Assessm ent Do you have trouble concentr ating, remembering, or making decisions because of a physical, mental, or emotional condition? No 05/15/2022 Plan of Treatment Not on file Procedures Procedure Name Priority Date/Time Associated Diagnosis Comments LIPID PANEL Routine 12/13/2021 11:37 AM CDT Dorsalgia Hypothyroidism, unspecified type Other fatigue from Last 3 Months or Most Recently Relevant to Health Maintenance Results * LIPID PANEL (12/13/2021 11:37 AM CDT) Pathologist [facility] Cholesterol 188 <=200 mg/dL 12/13/2021 12:58 PM CDT [facility] Triglycerides 80 <=150 mg/dL 12/13/2021 12:58 PM T [facility] Cholesterol, LDL (Calculated) 81 <=130 mg/dL 12/13/2021 12:58 PM CDT [facility] Cholesterol, HDL 91 >=40 mg/dL 12/14/19 22 12:58 PM T [facility] Cholesterol, vLDL 16 mg/dL 022 12:58 PM T [facility] Fasting Status No 12/13/2021 12:58 PM CDT [facility] Comment: ate at 10a- breakfast crossiant ate at 10a- breakfast crossiant Blood VENOUS BLOOD / Unknown Venipuncture / Unknown 12/13/2021 11:37 AM CDT 12/13/2021 11:46 AM CDT Robby Helton MD LAB CHEMISTRY AMANDA SHEA [facility] [address] [place] [id number], [place] from Last 3 Months or Most Recently Relevant to Health Maintenance Care Teams Cisco Consultant Relationship Specialty Start Date End Date Provider, No Primary . [place] [id number] PCP - General 11/13/20 Additional Source Comments PLEASE NOTE: Replies to this message will not be received.[facility]
--- OUTSIDE RECORDS SUMMARY | 2023-09-01 22:53 | XMS_ITS | Encounter Summary ---
Author Organization [employer] [facility] Address [address] [facility] [place] [address] Care Team Providers Care River Expedition Guide Name Role Phone Unknown, Provider Primary Care Provider Unavaila ble Provider, No Primary Primary Care Provider Unava ilable Encounter Details Date Type Department Care Team (Late st Contact Info) Description 04/09/2018 Historical Conversion [facility] [address] [facility]. [place] [address] Onesimo Sharma MD Social History Tobacco Use Types Packs/Day Years Used Date Smoking Tobacco: Never Assessed Sex and Gender Information Value Date Recorded Sex Assigned at Not on file Gender Identity Not on file Sexual Orientation Not on file documented as of this encounter Last Filed Vital Signs Vital Sign Reading Time Taken Comments Blood Pressure 118/72 04/09/2018 12:00 AM PROTOTYPE FABRICATOR Pulse - - Temperature - - Respiratory Rate - - Oxygen Saturation - - Inhaled Oxygen Concentration - - Weight 80.1 kg (176 lb 9.4 oz) 04/09/2018 12:00 AM PROTOTYPE FABRICATOR Height - - Body Mass Index - - documented in this encounter Plan of Treatment Not on file documented as of this encounter Visit Diagnoses Not on filedocumented in this encounter Care Teams River Expedition Guide Relationship Specialty Start Date End Date Unknown, Provider . [place] [id number] PCP - General 10/04/16 11/12/20 Provider, No Primary . [place] [id number] PCP - General 11/13/20 documented as of this encounter Additional Source Comments PLEASE NOTE: Replies to this message will not be received.[facility] and [facility]
--- OUTSIDE RECORDS SUMMARY | 2023-09-01 22:53 | XMS_ITS | Clinical Summary ---
Author Organization [facility] [facility] Address [address] [place] [address] Care Team Providers Care Worm Farm Laborer Name Role Phone Provider, No Primary Primary [...] Mass Index 26.28 05/23/2022 1:22 PM CDT Plan of Treatment Health Maintenance Due Date Last Done Comments HPV Testing 1980 Hepatitis C Testing 1980 PHQ-9 Depression Screening 1992 HIV Screen 04/18/1995 DTaP/Tdap/Td Vaccines (1 - Tdap) 04/18/1999 Hepatitis B Vaccines (1 of 3 - 19+ 3-dose series) 04/18/1999 Cervical Cancer Screening 2001 Mammogram Standard 2020 COVID-19 Vaccine (1 - 2022-2 4 season) 2022 Influenza Vaccine (#1) 2023 Lipids Standard 12/13/2026 12/13/2021 Varicella Zoster Sequential (1 of 2) 2030 HIB Vaccines Aged Out No longer eligi ble based on patient's age to complete this topic HPV Vaccines Aged Out No longer eligi ble based on patient's age to complete this topic Hepatitis A Vaccines Aged Out No long er eligible based on patient's age to complete this topic Meningococcal Vaccines Aged Out No lo nger eligible based on patient's age to complete this topic Pneumococcal Vaccine (0-64 Years) Aged Out No longer eligible based on patient's age to complete this topic Procedures Procedure Name Priority Date/Time Associated Diagnosis Comments LIPID PANEL Routine 12/13/2021 11:37 AM CDT Dorsalgia Hypothyroidism, unspecified type Other fatigue from Last 3 Months or Most Recently Relevant to Health Maintenance Results * LIPID PANEL (12/13/2021 11:37 AM CDT) Cholesterol 188 <=200 mg/dL 12/13/2021 12:58 PM T [facility] Triglycerides 80 <=150 mg/dL 12/13/2021 12:58 PM T [facility] Cholesterol, LDL (Calculated) 81 <=130 mg/dL 12/13/2021 12:58 PM T [facility] Cholesterol, HDL 91 >=40 mg/dL 12/14/19 22 12:58 PM T [facility] Cholesterol, vLDL 16 mg/dL 022 12:58 PM T [facility] Fasting Status No 12/13/2021 12:58 PM CDT [facility] Comment: ate at 10a- breakfast crossiant ate at 10a- breakfast crossiant Blood VENOUS BLOOD / Unknown Venipuncture / Unknown 12/13/2021 11:37 AM CDT 12/13/2021 11:46 AM CDT Robby Helton MD LAB CHEMISTRY ORDERA BLES [facility] [address] [place] [id number], from Last 3 Months or Most Recently Relevant to Health Maintenance Care Teams Worm Farm Laborer Relationship Specialty Start Date End Date Provider, No Primary . [place] [id number] PCP - General 11/13/20 Additional Source Comments PLEASE NOTE: Replies to this message will not be received.[facility] and [facility]
--- OUTSIDE RECORDS SUMMARY | 2023-09-01 22:53 | XMS_ITS | Encounter Summary ---
Author Organization [employer] [facility] Address [address] [place] [address] Care Team Providers Care Producer Arborist Manager Name Role Phone Unknown, Provider Primary Care Provider Unavaila ble Provider, No Primary Primary Care Provider Unava ilable Encounter Details Date Type Department Care Team (Late st Contact Info) Description 03/11/2018 Historical Conversion [facility] Family Medicine [address] [place] [address]. [place] [address] Onesimo Sharma MD Social History Tobacco Use Types Packs/Day Years Used Date Smoking Tobacco: Never Assessed Sex and Gender Information Value Date Recorded Sex Assigned at Not on file Gender Identity Not on file Sexual Orientation Not on file documented as of this encounter Last Filed Vital Signs Vital Sign Reading Time Taken Comments Blood Pressure 118/70 03/11/2018 12:00 AM CAN CONVEYOR FEEDER Pulse - - Temperature - - Respiratory Rate - - Oxygen Saturation - - Inhaled Oxygen Concentration - - Weight 79.9 kg (176 lb 2.4 oz) 03/11/2018 12:00 AM CAN CONVEYOR FEEDER Height - - Body Mass Index - - documented in this encounter Progress Notes * Onesimo Sharma MD - 03/11/2018 12:00 AM CST Assessment 1. Cellulitis of buttock (682.5) (L03.317) Plan We talked about treatment. She stated a preference to not take antibiotics and I told her that I thought it was not absolutely necessary and that she would likely recover over the next 7-10 days without a problem. Cool packs might be helpful. Should the area on the one side become more fluctuant I asked her to come back and we could see if there would be something to drain although I think that is very unlikely. The appearance of this lesion is that of strep and not staph and should clear on its own. 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 She is apparently for a while been giving herself injections of B complex vitamins and vitamin C. Recently she had a couple of problems and wanted me to check out the injection sites. She had run out of syringes and so got a insulin syringe from a family member. In addition when she opened 1 of the vials as the vial top cracked off as the last splintered slightly. In both cases she went ahead and did theinjections. In either case the area of injection became red and tender a day or 2 after the injection. She now about 5 days later has an area of erythema with slight elevation of the skin and at least the one on the left side has not very small area of induration in the middle. It is not fluctuant like an abscess and does not have any suggestion of abscess-like features. The right one is much smaller and is shows no indurated firm areas and is much less tender. Otherwise well with no fever chills or other symptoms. She thinks the area of rash has been about the same now for about 2 days. Current Meds 1. Ambien 10 MG Oral Tablet; Therapy: (Recorded:11Mar2018) to Recorded 2. [place] Thyroid 60 MG Oral Tablet; Therapy: (Recorded:11Mar2018) to Recorded 3. KlonoPIN 1 MG Oral Tablet; Therapy: (Recorded:11Mar2018) to Recorded 4. Multiple Vitamin TABS; LIQUID VITAMINS VIA SYRINGE; Therapy: (Recorded:11Mar2018) to Recorded Allergies 1. Sulfa Drugs Vitals Vital Signs Recorded: 11Mar2018 05:01PM Systolic 118 Diastolic 70 Heart Rate 66 Respiration 18 Temperature 98 F Weight 79.9 kg O2 Saturation 99 Physical Exam General Appearance: GEORGE is alert and in no acute distress. Skin: Area of induration as described on the right buttocks area this area of induration is approximately 10 cm long and about 4 cm in other dimension. It is mildly tender in the middle without fluctuance. It is red and warm to touch the one on the left side is about 3 x 3 cm without induration tenderness or firmness. These would have the appearance of area of erysipelas although more likely represent a chemical reaction to the injectable materials. This is the case as they probably were mostlysubcutaneous instead of IM as she usually gets them. Results/Data WBC 11Mar2018 05:47PM Onesimo Sharma Test Name Result Flag Reference WBC 6.9 K/uL 4.0-11.0 Signatures Electronically signed by : Onesimo Sharma M.D.; Mar 11 2018 7:47PM CAN CONVEYOR FEEDER documented in this encounter Plan of Treatment Not on file documented as of this encounter Visit Diagnoses Not on filedocumented in this encounter Care Teams Producer Arborist Manager Relationship Specialty Start Date End Date Unknown, Provider . YARA ALEJANDRE [id number] PCP - General 10/04/16 11/12/20 Provider, No Primary . YARA MONZON [id number] PCP - General 11/13/20 documented as of this encounter Additional Source Comments PLEASE NOTE: Replies to this message will not be received.[facility]
--- OUTSIDE RECORDS SUMMARY | 2023-09-01 22:53 | XMS_ITS | Clinical Summary ---
Author Organization [facility] Address [address] [place] [address] Care Team Providers Care Sterile Processing Tech Name Role Phone Robby Helton MD Primary Care Provider [phone] Source Comments You are receiving this document as you are listed as the primary care provider,follow-up provider, or the patient has been referred to you for consultation.This is in compliance with the Medicare and[facility] EHR Incentive Program,which states Providers who transition their patient to another setting of careor provider of care or refers their patient to another provider of care shouldprovide summary care record for each transition of care or referral. Memolane Medications Medication Sig Dispensed Refills Start Date End Date Status clonazePAM (KLONOPIN) 1 MG tablet Take 1 mg by mouth three times a day. 1 12/02/2018 Active cyclobenzaprine (FLEXERIL) 10 MG tablet Take 10 mg by mouth three times a day as needed. 1 12/02/2018 Active ARMOUR THYROID 60 MG tablet TK 1 T PO QAM BEFORE BREAKFAST ON AN EMPTY STOMACH 3 09/28/2018 Active zolpidem tartrate (AMBIEN CR) 6.25 MG controlled release tablet Take 6.25 mg by mouth daily at bedtime. at bedtime 2 12/07/2018 Active Active Problems Problem Noted Date Diagnosed Date Anxiety and depression 12/15/2018 Hypothyroidism 12/15/2018 Irritable bowel syndrome wit h both constipation and diarrhea 12/15/2018 Chronic low back pain 12/15/2018 Family History Medical History Relation Name Comments Lupus Mother Thyroid Disorder Other Relation Name Status Comments Mother Other Social History Tobacco Use Types Packs/Day Years Used Date Smoking Tobacco: Former Smokeless Tobacco: Never Sex and Gender Information Value Date Recorded Sex Assigned at Not on file Gender Identity Not on file Sexual Orientation Not on file Plan of Treatment Health Maintenance Due Date Last Done Comments Cervical Cancer Screening Due 1980 Hep C Screening (Preventive Services) 1980 Mammogram 1980 HIV Screening (Preventive Services) 1996 Adult Preventive Visit 1998 DTaP/Tdap/Td (1 - Tdap) 04/18/1999 HepB (1) 04/18/1999 COVID-19 Vaccine (1 - 2022-2 4 season) 2022 Influenza (#1) 2023 Zoster/Shingles (1 of 2) 2030 HPV Vaccine Aged Out No longer eligi ble based on patient's age to complete this topic HepA Aged Out No longer eligi ble based on patient's age to complete this topic Hib Aged Out No longer eligi ble based on patient's age to complete this topic IPV (Polio) Aged Out No longer eligi ble based on patient's age to complete this topic MCV4 Aged Out No longer eligi ble based on patient's age to complete this topic Pneumococcal Aged Out No longer eligi ble based on patient's age to complete this topic Care Teams Sterile Processing Tech Relationship Specialty Start Date End Date Robby Helton MD [address] [place], [place] [id number] PCP - General Family Practice 11/18/18
--- OUTSIDE RECORDS SUMMARY | 2023-09-01 22:53 | XMS_ITS | Encounter Summary ---
Author Organization [employer] [facility] Address [address] [place] [address] Care Team Providers Care Nut Grinder Name Role Phone Unknown, Provider Primary Care Provider Unavaila ble Provider, No Primary Primary Care Provider Unava ilable Encounter Details Date Type Department Care Team (Late st Contact Info) Description 04/09/2018 Historical Conversion [facility] Family Medicine [address] [place] [address] Onesimo Sharma MD Social History Tobacco Use Types Packs/Day Years Used Date Smoking Tobacco: Never Assessed Sex and Gender Information Value Date Recorded Sex Assigned at Not on file Gender Identity Not on file Sexual Orientation Not on file documented as of this encounter Progress Notes * Onesimo Sharma MD - 04/09/2018 12:00 AM CST Assessment 1. Hypothyroidism (244.9) (E03.9) 2. Acute anxiety (300.00) (F41.9) 3. Cellulitis of buttock (682.5) (L03.317) Plan Med refills as noted. Follow-up with the skin lesion PRN Plan Orders Acute anxiety From KlonoPIN 1 MG Oral Tablet To clonazePAM 1 MG Oral Tablet TAKE 1 TABLET TWICE DAILY NEEDED Hypothyroidism [place] Thyroid 60 MG Oral Tablet; TAKE 1 TABLET BY MOUTH EVERY MORNING BEFORE BREAKFAST ON EMPTY STOMACH Unlinked From Ambien 10 MG Oral Tablet To Zolpidem Tartrate 10 MG Oral Tablet (Ambien) TAKE 1 TABLET NEEDED AT BEDTIME Reason For Visit Medication refills. Check area on buttocks History of Present Illness Here today in follow-up of my visit with her several weeks ago. She has a history of chronic anxiety in addition to hypothyroidism. She is involved with alternative treatments using a homeopathic provider that she saw while she was in school down in [place]. She is moved to the area here now and is working in this area so looking for a physician to prior to provide her some support with these problems in addition to recommendation for possibly a homeopathic type physician locally. She is addition had a lesion on the side of her buttocks which developed after giving herself an IM injection of vitamins including vitamin C. This is part of her treatment protocol that she is using. We had discussed my lack of experience in using those products I am and told her I would try to become more informed about that. I suspect that she had a small area of foreign body reaction as the injection was relatively shallow using an insulin syringe instead of her usual IM syringe that she uses. That area of induration was assessed as well Current Meds 1. Ambien 10 MG Oral Tablet; Therapy: (Recorded:11Mar2018) to Recorded 2. [place] Thyroid 60 MG Oral Tablet; Therapy: (Recorded:11Mar2018) to Recorded 3. KlonoPIN 1 MG Oral Tablet; Therapy: (Recorded:11Mar2018) to Recorded 4. Multiple Vitamin TABS; LIQUID VITAMINS VIA SYRINGE; Therapy: (Recorded:11Mar2018) to Recorded Allergies 1. Sulfa Drugs Vitals Vital Signs Recorded: 09Apr2018 03:59PM Systolic 118, RUE, Sitting Diastolic 72, RUE, Sitting Heart Rate 60, R Radial Pulse Quality Regular, R Radial Respiration Quality Normal Respiration 16 Temperature 97.4 F, Tympanic Weight 80.1 kg Pain Scale 0 O2 Saturation 99, RA Physical Exam General Appearance: GEORGE is healthy-appearing, alert and in no acute distress. Skin: The area of induration on her left buttocks is much less tender to touch. It is very slightlyraised and firm with no central fluctuance. It is not red or warm and I suspect is resolving as onewould expect. Her meds were reviewed and refilled for her. We did discuss the issue of long-term benzodiazepines for sleep and she is well aware of that. She tells me that her need for these meds hasnot changed significantly recently and I did go ahead to refill them for her. Signatures Electronically signed by : Oensimo Sharma M.D.; Apr 13 2018 10:08PM SLUMBER ROOM ATTENDANT documented in this encounter Plan of Treatment Not on file documented as of this encounter Visit Diagnoses Not on filedocumented in this encounter Care Teams Nut Grinder Relationship Specialty Start Date End Date Unknown, Provider . YARA ALEJANDRE [id number] PCP - General 10/04/16 11/12/20 Provider, No Primary . YARA MONZON [id number] PCP - General 11/13/20 documented as of this encounter Additional Source Comments PLEASE NOTE: Replies to this message will not be received.[facility]
[2023-09-02 02:14] LABS: Basophils Percent Auto 0.3 % (0.0-3.0); Eosinophils Percent Auto 2.6 % (0.0-7.0); Hematocrit 39.2 % (33.0-51.0); Immature Granulocytes Pct Auto 0.8 %; Mean Corpuscular HGB Conc 33 gm/dL (32-36); Mean Corpuscular Hemoglobin 30 pg (26-34); Mean Corpuscular Volume 91 fL (80-100); Monocytes Percent Auto 7.3 % (0.0-11.0); Platelet Count* 313 K/uL (140-440); RDW Coefficient of Variation % 13.1 % (11.5-15.5); Red Blood Count 4.32 m/uL (4.00-5.20); White Blood Count* 3.84 K/uL (4.50-11.00)
[2023-09-02 02:32] LABS: Albumin* 4.6 g/dL (3.3-5.0); Chloride* 108 mmol/L (96-114); Sodium* 140 mmol/L (135-149)
[2023-09-02 02:35] LABS: Alanine Aminotransferase* 13 U/L (4-35); Alkaline Phosphatase* 48 U/L (40-150); Anion Gap 7 mEq/L (7-15); Aspartate Amino Transferase* 20 U/L (12-35); Bilirubin Total* 0.6 mg/dL (0.1-1.5); Blood Urea Nitrogen* 13 mg/dL (5-24); Calcium* 9.4 mg/dL (8.4-10.6); Carbon Dioxide* 25 mmol/L (20-32); Creatinine* 0.6 mg/dL (0.5-1.5); Estimated Glomerular Filt Rate 114 ml/min; Glucose* 91 mg/dL (60-115); Total Protein* 7.4 g/dL (6.0-8.3)
[2023-09-02 03:46] LABS: Slide Review Reflex No
[2023-09-03 14:44] LABS: Anti-Nuclear Ab(ANA)IgG ELISA Detected (None Detected)
[2023-09-04 11:25] LABS: Antinuclear AntibodyHEp-2 <1:80 (<1:80)
== END 2023-09-01 22:44 | disposition home or self-care (01) ==
LOC: NPINS 22:43
PROVIDERS: Physician Assistant Medical; PCP Family Medicine
DX: M25.50 Pain in unspecified joint (principal); R10.9 Unspecified abdominal pain; R53.83 Other fatigue; R68.82 Decreased libido; R11.0 Nausea
CPT/HCPCS: 80053; 80061; 82607; 83690; 84443; 85025; 86039